=== PATIENT | male | born 1990 | race African-American/Black ===

== ENCOUNTER 2018-07-15 10:13 | Inpatient (IN) | payer MEDICAID ==
[~2018-07-15] VITALS: Ht 188 cm; Wt 122.0 kg
[2018-07-15] VITALS (19 sets, daily range): BP systolic 147–165; BP diastolic 86–109; PULSE 79–103; RESP 9–16; Ht 188 cm; Wt 122.0 kg
[2018-07-15] MEDS ORDERED: SOD CHLORIDE 0.9% 1,000 ML IV STA (10:59)
[2018-07-15] MEDS ORDERED: HYDROCHLOROTHIAZIDE 25 MG TAB PO ONE (11:00)
--- NOTE | 2018-07-15 11:21 | ERD ---
ER Documentation Chief Complaint Chief Complaint GENERALIZED WEAKNESS POOR APPETITE VOMTING. HPI This is a 26-year-old previously healthy man with multiple complaints occurring over the last few weeks including generalized weakness, palpitations, lethargy, paresthesias, muscle spasms, blurry vision, and daily intermittent vomiting. He states over the last few weeks he is lost just about 60 pounds. He denies loss of consciousness, no diarrhea, no recent travel, no recent medication or drug use. ROS All systems reviewed and are negative except as per history of present illness. Medications Home Meds No Active Prescriptions or Reported Meds Allergies Allergies: Coded Allergies: No Known Allergy (Unverified , 07/15/18) FmHx Family History: No diabetes Physical Exam Vitals Vital Signs Date Temp Pulse Resp B/P (MAP) Pulse Ox O2 O2 Flow FiO2 Time Delivery Rate 07/15/18 98 144/83 13:10 (103) 07/15/18 Nasal 11:11 Cannula 07/15/18 98.8 116 17 185/115 100 10:17 (138) Physical Exam GENERAL: Well-developed, appears dehydrated, anemic, afebrile HEENT: Dry mucous membranes, pale conjunctiva, no cervical spine tenderness or step-off deformities, no goiter, no jaundice or icterus, extraocular movements intact without pain. NEURO: Alert and oriented 3, cranial nerves II through XII intact bilaterally, positive diffuse muscular spasms over the extremities, pupils equal round reactive to light, no focal deficits or facial asymmetry, I could not elicit [place] sign CARDIAC: Regular rate and rhythm, no murmurs rubs or gallops LUNGS: Clear bilaterally no wheezing crackles or stridor ABDOMEN: Soft nontender, no guarding, no rigidity, no rebound, no psoas sign no obturator sign. SKIN: Warm and dry to touch, no abrasions, contusions, or hematomas, no lacerations, no ecchymosis, no target lesions, and without ulcers EXTREMITIES: No clubbing cyanosis, nonpitting edema in the lower extremities bilaterally, calves are bilaterally symmetrical, no Homans sign, no popliteal cord sign. Distal pulses equal and bilateral PSYCH: Normal affect without agitation or irritability Result Diagram: 07/15/18 1059 07/15/18 1059 Results 24 hrs Laboratory Tests Test 07/15/18 10:59 07/15/18 11:05 White Blood Count 7.2 10^3/ul Red Blood Count 2.47 10^6/ul Hemoglobin 6.6 g/dl Hematocrit 19.4 % Mean Corpuscular Volume 78.5 fl Mean Corpuscular Hemoglobin 26.7 pg Mean Corpuscular Hemoglobin Concent 34.0 g/dl Red Cell Distribution Width 13.2 % Platelet Count 243 10^3/UL Mean Platelet Volume 9.5 fl Immature Granulocytes % 0.300 % Neutrophils % 68.0 % Segmented Neutrophils % (Manual) 65 % Lymphocytes % 21.5 % Lymphocytes % (Manual) 29 % Monocytes % 7.2 % Monocytes % (Manual) 2 % Eosinophils % 2.4 % Eosinophils % (Manual) 4 % Basophils % 0.6 % Nucleated Red Blood Cells % 0.0 /100WBC Immature Granulocytes # 0.020 10^3/ul Neutrophils # 4.9 10^3/ul Lymphocytes (Manual) 2.0 10^3/ul Lymphocytes # 1.6 10^3/ul Monocytes # 0.5 10^3/ul Monocytes # (Manual) 0.1 10^3/ul Eosinophils # 0.2 10^3/ul Basophils # 0.0 10^3/ul Nucleated Red Blood Cells # 0.0 10^3/ul Pathologist Review (Hematology) YES Platelet Estimate NORMAL Polychromasia 3+ Hypochromasia 3+ Anisocytosis 2+ Microcytosis 2+ Macrocytosis 1+ Sodium Level 143 mmol/L Potassium Level 4.3 mmol/L Chloride Level 96 mmol/L Carbon Dioxide Level 15 mmol/L Anion Gap 32 Blood Urea Nitrogen 162 mg/dl Creatinine 44.63 mg/dl Est Glomerular Filtrat Rate mL/min 1 mL/min Glucose Level 110 mg/dl Calcium Level 5.3 mg/dl Total Bilirubin 0.0 mg/dl Direct Bilirubin 0.00 mg/dl Indirect Bilirubin 0.0 mg/dl Aspartate Amino Transf (AST/SGOT) 16 IU/L Alanine Aminotransferase (ALT/SGPT) 11 IU/L Alkaline Phosphatase 80 IU/L Troponin I 0.198 ng/ml Total Protein 8.5 g/dl Albumin 4.5 g/dl Globulin 4.00 g/dl Albumin/Globulin Ratio 1.12 Lipase 1901 U/L Thyroid Stimulating Hormone (TSH) 2.340 MIU/L Free Thyroxine 1.79 ng/dl Free Triiodothyronine (T3) pg/mL 2.48 pg/ml Bedside Glucose 114 mg/dL Current Medications Medications Dose Sig/Enedina Start Time Status Last (Trade) Ordered Route PRN Stop Time Admin Dose Reason Admin Sodium 1,000 ml @ Q1H STAT 07/15/18 DC 07/15/18 Chloride 1,000 mls/hr IV 10:59 07/15/18 11:13 11:58 25 mg ONCE ONCE 07/15/18 DC 07/15/18 Hydrochloroth PO 11:00 07/15/18 11:13 iazide 11:01 (Hydrochlorot hiazide) Magnesium 50 ml @ 25 ONCE ONCE 07/15/18 07/15/18 Sulfate mls/hr IVPB 11:30 07/15/18 12:36 13:29 Calcium 2,000 mg ONCE ONCE 07/15/18 DC 07/15/18 Chloride IV 12:30 07/15/18 12:26 (Ca Chloride 12:31 10% Syg) Sodium 1,000 ml ONCE IV 07/15/18 Chloride 13:30 07/15/18 (NS) 14:30 IV Flush 3 ml PER 07/15/18 (NS 3 ml) PROTOCOL IV 13:30 Ondansetron 4 mg Q6H PRN 07/15/18 HCl (Zofran IV 13:30 Inj) NAUSEA/VOMITI NG 650 mg Q6H PRN 07/15/18 Acetaminophen PO .PAIN 1-3 13:30 (Tylenol OR TEMP Tab) 1 tab Q6H PRN 07/15/18 Acetaminophen PO .MOD PAIN 13:30 / 4-6 Hydrocodone Bitart ([place] (5/325)) Docusate 100 mg Q12H PRN 07/15/18 Sodium PO 13:30 (Colace) .CONSTIPATION Bisacodyl 5 mg DAILY PRN 07/15/18 (Dulcolax) PO 13:30 .CONSTIPATION Bisacodyl 10 mg DAILY PRN 07/15/18 (Dulcolax [place] 13:30 Supp) .CONSTIPATION 40 mg DAILY@06 07/16/18 Pantoprazole PO 06:00 (Protonix Tab) Dextrose 1,000 ml @ Q8H IV 07/15/18 125 mls/hr 13:30 Procedures/MDM IV line was established patient was placed on surveillance system monitor rhythm strip revealed a sinus rhythm at about 90 bpm with upright P and T waves. Patient was afebrile EKG performed, read by me revealed a normal sinus rhythm at 92 bpm, normal axis, narrow QRS complex, no concerning ST elevations or depressions noted, anterolateral T wave inversions noted, prolonged QT of 556 ms I administered 1 L normal saline IV and hydrochlorothiazide 25 mg p.o. for initial hypertension. CBC revealed anemia with a hemoglobin of 6.6, electrolytes were abnormal with acidosis and a bicarb of 15, new onset renal failure with a BUN/creatinine of 162/45, calcium critically low at 5.3, troponin positive at 0.2, lipase elevated over 1900, liver function tests unremarkable I administered magnesium 2 g IV for prolonged QT and calcium 2 g IV for severe hypocalcemia. I ordered transfusion 2 units PRBC IV over 4 hours. Thyroid panel was within normal limits. CT scan of the abdomen and pelvis was performed,IMPRESSION: 1. Trace free fluid in the right and central lower pelvis at and just superior to the urinary bladder. No other free fluid. Negative for intra-abdominal abscess, free air or lymphadenopathy. 2. Mildly atrophic kidneys without calcified urinary calculi or obstructive uro lucas bilaterally. 3. No gastrointestinal disease demonstrated. 4. Fat-containing umbilical hernia without herniated bowel or strangulation. Critical Care: Time: 50 minutes, this was time separate from other billable procedures. Treatments/Evaluations: Close monitoring and treatment of unstable vital signs, cardiorespiratory, and neurologic status, while maintaining tight balance of fluid, respiratory, and cardiac interventions. I consulted urology to place a Shine catheter to monitor urine output as we could not place one in the ED. Patient will be admitted to intensive care unit and will also require further consultation with nephrology Departure Diagnosis: Primary Impression: Vomiting Vomiting type: unspecified Vomiting Intractability: intractable Nausea presence: with nausea Qualified Codes: R11.2 - Nausea with vomiting, unspecified Additional Impressions: Symptomatic anemia Unexplained weight loss Hypocalcemia Acute kidney injury Prolonged QT interval Condition: Critical DONNELL VALENZUELA MD Jul 15, 2018 11:21
[2018-07-15] MEDS ORDERED: MAGNESIUM SULFATE 2 GM/50 ML 50 ML IVPB ONE (11:30)
[2018-07-15] MEDS ORDERED: CA CHLORIDE 10% 10 ML SYRINGE IV ONE (12:30)
[2018-07-15] MEDS ORDERED: NACL 0.9% 3 ML SYG IV SCH (13:30)
[2018-07-15] MEDS ORDERED: hydrALAzine 20 MG INJ IV PRN (13:30)
[2018-07-15] MEDS ORDERED: NIFEdipine (XL) 60 MG TAB PO SCH (13:30)
[2018-07-15] MEDS ORDERED: ONDANSETRON 4 MG INJ IV PRN (13:30)
[2018-07-15] MEDS ORDERED: SODIUM CHLORIDE 0.9% 1L BAG IV SCH (13:30)
[2018-07-15] MEDS ORDERED: BISACODYL 10 MG SUPP PR PRN (13:30)
[2018-07-15] MEDS ORDERED: CLONIDINE 0.3 MG/24 HR PATCH TRANSDERM SCH ×2 (13:30→16:00)
[2018-07-15] MEDS ORDERED: DOCUSATE SODIUM 100 MG CAP PO PRN (13:30)
[2018-07-15] MEDS ORDERED: DEXTROSE 5% 1,000 ML IV SCH (13:30)
[2018-07-15] MEDS ORDERED: LIDOCAINE 2% JELLY 5 ML TOP STA (13:35)
--- NOTE | 2018-07-15 14:34 | CONS ---
Assessment/Plan Assessment/Plan Assessment/Plan (Daily) 1. acute kidney failure with acute uremic encephalopathy 2. severe metabolic acidosis 3. severe anemia with Hb 5.9 4. no past medical history Plan: seen in ED< BUN is very high, HCo3 low, Pt Hb 5.9- ordered to have PRBC transfusion will plan for HD intiation, Suprisingly Renal US showed Right kidney medical Renal disease( CKD) and left kidney not visualised CK total high, will give IVF Uric acid 14- will start allopurinol 100mg pO BID IR to place quiton catheter HD today and tomorrow with minimal ultrafilration , plan is to use mannitol with HD today THanks for consultation, I will continue to follow up Consultation Date/Type/Reason Admit Date/Time 07/15/18 Date of Consultation: Jul 15, 2018 Type of Consult NEPHROLOGY Reason for Consultation acute kidney injury, possible CKD , Hypocalcemia, Acute uremia with BUN 162 Requesting Provider: FATIMAH PARKS MD Date/Time of Note DATE: 07/15/18 TIME: 14:34 Hx of Present Illness 26-year-old previously healthy man with multiple complaints occurring over the last few weeks including generalized weakness, palpitations, lethargy, paresthesias, muscle spasms, blurry vision, and daily intermittent vomiting. He states over the last few weeks he is lost just about 60 pounds. He denies loss of consciousness, no diarrhea, no recent travel, no recent medication or drug use. his urine tox positive for opiates, In ED his labs were notable for BUN/Cr 1 62/44.63, HCO3 15- K normal, CXr negative for acute findings, pt gest admitted to ICU and Renal has been consulted for Acute kidney injury, Acidosis. No h/o kidney disease as per patient, no h/o kidney stone Constitutional: poor po, other (generalized weakness, muscle spasm ) Eyes: no complaints ENT: no complaints Respiratory: shortness of breath Cardiovascular: no complaints Gastrointestinal: no complaints Genitourinary: no complaints Musculoskeletal: no complaints Skin: no complaints Neurologic: no complaints Endocrine: no complaints Lymphatic: no complaints Psychological: no complaints Immunologic: no complaints Past Medical History Medical History: no pertinent history Home Meds No Active Prescriptions or Reported Meds Medications Current Medications IV Flush (NS 3 ml) 3 ml PER PROTOCOL IV ; Start 07/15/18 at 13:30 Ondansetron HCl (Zofran Inj) 4 mg Q6H PRN IV NAUSEA/VOMITING; Start 07/15/18 at 13:30 Acetaminophen (Tylenol Tab) 650 mg Q6H PRN PO .PAIN 1-3 OR TEMP; Start 07/15/18 at 13:30 Acetaminophen/ Hydrocodone Bitart ([place] (5/325)) 1 tab Q6H PRN PO .MOD PAIN 4- 6; Start 07/15/18 at 13:30 Docusate Sodium (Colace) 100 mg Q12H PRN PO .CONSTIPATION; Start 07/15/18 at 13:30 Bisacodyl (Dulcolax) 5 mg DAILY PRN PO .CONSTIPATION; Start 07/15/18 at 13:30 Bisacodyl (Dulcolax Supp) 10 mg DAILY PRN [place] .CONSTIPATION; Start 07/15/18 at 13:30 Pantoprazole (Protonix Tab) 40 mg DAILY@06 PO ; Start 07/16/18 at 06:00 Dextrose 1,000 ml @ 125 mls/hr Q8H IV ; Start 07/15/18 at 13:30 Hydralazine HCl (Apresoline) 10 mg Q4H PRN PO SBP more than 150 mm Hg ; Start 07/15/18 at 13:30 Clonidine HCl (Catapres-Tts 3 Patch) 1 patch DAILY TRANSDERM ; Start 07/15/18 at 13:30 Hydralazine HCl (Apresoline) 20 mg Q3H PRN IV ELEVATED SYSTOLIC BP; Start 07/15/18 at 13:30 Labetalol HCl (Normodyne) 100 mg TID PO ; Start 07/15/18 at 14:00 Hydralazine HCl (Apresoline) 75 mg TID PO ; Start 07/15/18 at 14:00 Nifedipine (Procardia Xl) 90 mg DAILY PO ; Start 07/15/18 at 13:30 Allergies: Coded Allergies: No Known Allergy (Unverified , 07/15/18) Past Surgical History Past Surgical Hx: no surgical history Family History Significant Family History: no pertinent family hx Social History Alcohol Use: none Smoking Status: Former smoker Drug Use: none Exam/Review of Systems Exam Vitals Vital Signs Date Temp Pulse Resp B/P (MAP) Pulse Ox O2 O2 Flow FiO2 Time Delivery Rate 07/15/18 98 144/83 13:10 (103) 07/15/18 Nasal 11:11 Cannula 07/15/18 98.8 17 100 10:17 Constitutional: alert Head: normocephalic Eyes: nl conjunctiva ENMT: nl external ears & nose Neck: supple, non-tender Respiratory: crackles/rales, diminished breath sounds Cardiovascular: regular rate and rhythm, nl pulses Gastrointestinal: soft, non-tender Musculoskeletal: muscle weakness, swelling, other (muscle spasm) Extremities: normal pulses Neurological: PUNCH OPERATOR II-XII intact, nl mental status, nl speech, nl strength Skin: nl turgor Lymph: nl lymph nodes Results Result Diagram: 07/15/18 1324 07/15/18 1059 Results 24hrs Laboratory Tests Test 07/15/18 10:59 07/15/18 11:05 07/15/18 13:23 07/15/18 13:24 White Blood Count 7.2 Red Blood Count 2.47 L Hemoglobin 6.6 *L 5.9 *L Hematocrit 19.4 L 17.5 L Mean Corpuscular Volume 78.5 L Mean Corpuscular 26.7 L Hemoglobin Mean Corpuscular 34.0 Hemoglobin Concent Red Cell Distribution 13.2 Width Platelet Count 243 Mean Platelet Volume 9.5 Immature Granulocytes % 0.300 Neutrophils % 68.0 Segmented Neutrophils 65 % (Manual) Lymphocytes % 21.5 Lymphocytes % (Manual) 29 Monocytes % 7.2 Monocytes % (Manual) 2 Eosinophils % 2.4 Eosinophils % (Manual) 4 Basophils % 0.6 Nucleated Red Blood 0.0 Cells % Immature Granulocytes # 0.020 Neutrophils # 4.9 Lymphocytes (Manual) 2.0 Lymphocytes # 1.6 Monocytes # 0.5 Monocytes # (Manual) 0.1 L Eosinophils # 0.2 Basophils # 0.0 Nucleated Red Blood 0.0 Cells # Pathologist YES Review (Hematology) Platelet Estimate NORMAL Polychromasia 3+ Hypochromasia 3+ Anisocytosis 2+ Microcytosis 2+ Macrocytosis 1+ Sodium Level 143 Potassium Level 4.3 Chloride Level 96 L Carbon Dioxide Level 15 L Anion Gap 32 H Blood Urea Nitrogen 162 H Creatinine 44.63 H Est Glomerular Filtrat 1 L Rate mL/min Glucose Level 110 Calcium Level 5.3 *L Total Bilirubin 0.0 L Direct Bilirubin 0.00 Indirect Bilirubin 0.0 Aspartate Amino 16 Transf (AST/SGOT) Alanine 11 L Aminotransferase (ALT/SG PT) Alkaline Phosphatase 80 Troponin I 0.198 *H Total Protein 8.5 H Albumin 4.5 Globulin 4.00 H Albumin/Globulin Ratio 1.12 Lipase 1901 H Thyroid Stimulating 2.340 Hormone (TSH) Free Thyroxine 1.79 Free Triiodothyronine 2.48 L (T3) pg/mL Bedside Glucose 114 Prothrombin Time 15.3 H Prothrombin Time Ratio 1.2 INR International 1.20 Normalized Ratio Lactate Dehydrogenase 988 H Creatine Kinase 1256 H Urine Color STRAW Urine Clarity CLEAR Urine pH 5.0 Urine Specific [place] 1.013 Urine Ketones NEGATIVE Urine Nitrite NEGATIVE Urine Bilirubin NEGATIVE Urine Urobilinogen NEGATIVE Urine Leukocyte Esterase NEGATIVE Urine Microscopic RBC 2 Urine Microscopic WBC 7 H Urine Amorphous Crystals FEW A Urine Bacteria FEW A Urine Eosinophils % 0.0 Urine Hemoglobin 1+ H Urine Random Creatinine 155.81 Urine Random Sodium 49 Urine Glucose NEGATIVE Urine Total Protein 3+ H Urine Opiates Screen Positive Urine Barbiturates Negative Urine Amphetamines Negative Screen Urine Benzodiazepines Negative Screen Urine Cocaine Screen Negative Urine Cannabinoids Negative Test 07/15/18 13:27 Uric Acid 14.1 H Medications Medication Current Medications IV Flush (NS 3 ml) 3 ml PER PROTOCOL IV ; Start 07/15/18 at 13:30 Ondansetron HCl (Zofran Inj) 4 mg Q6H PRN IV NAUSEA/VOMITING; Start 07/15/18 at 13:30 Acetaminophen (Tylenol Tab) 650 mg Q6H PRN PO .PAIN 1-3 OR TEMP; Start 07/15/18 at 13:30 Acetaminophen/ Hydrocodone Bitart ([place] (5/325)) 1 tab Q6H PRN PO .MOD PAIN 4- 6; Start 07/15/18 at 13:30 Docusate Sodium (Colace) 100 mg Q12H PRN PO .CONSTIPATION; Start 07/15/18 at 13:30 Bisacodyl (Dulcolax) 5 mg DAILY PRN PO .CONSTIPATION; Start 07/15/18 at 13:30 Bisacodyl (Dulcolax Supp) 10 mg DAILY PRN [place] .CONSTIPATION; Start 07/15/18 at 13:30 Pantoprazole (Protonix Tab) 40 mg DAILY@06 PO ; Start 07/16/18 at 06:00 Dextrose 1,000 ml @ 125 mls/hr Q8H IV ; Start 07/15/18 at 13:30 Hydralazine HCl (Apresoline) 10 mg Q4H PRN PO SBP more than 150 mm Hg ; Start 07/15/18 at 13:30 Clonidine HCl (Catapres-Tts 3 Patch) 1 patch DAILY TRANSDERM ; Start 07/15/18 at 13:30 Hydralazine HCl (Apresoline) 20 mg Q3H PRN IV ELEVATED SYSTOLIC BP; Start 07/15/18 at 13:30 Labetalol HCl (Normodyne) 100 mg TID PO ; Start 07/15/18 at 14:00 Hydralazine HCl (Apresoline) 75 mg TID PO ; Start 07/15/18 at 14:00 Nifedipine (Procardia Xl) 90 mg DAILY PO ; Start 07/15/18 at 13:30 ROSIE ULLOA MD Jul 15, 2018 14:34
--- NOTE | 2018-07-15 14:49 | CONS ---
Assessment/Plan Assessment/Plan Hospital Course (Demo Recall) 26-year-old previously healthy man with multiple presented to the emergency room with complaints of generalized weakness, palpitations, lethargy, paresthesias, muscle spasms, blurry vision, and daily intermittent vomiting. He states he has been sick over the last few weeks and he lost just about 60 pounds. He denies loss of consciousness, no diarrhea, no recent travel, no recent medication or drug use. As he presented to the emergency room he was found to have renal failure and the nursing staff attempted to insert the catheter for him unsuccessfully. Therefore a urological consultation was requested. Patient denies any prior history of catheterization. He denies any history of sexually transmitted disease. He had no prior surgeries. He denies any history of rheumatic fever, scarlet fever. His father does have prostate cancer and was treated. Prior to his present illness he has been voiding well with a good stream and no dysuria and no hematuria On the exam his bladder is nondistended. I did however insert a 14 [place] coud catheter for him and obtained about 60 mL of clear urine. I prep the genital area then gave him 15 mL of 2% lidocaine gel and waited for it for 6 minutes to work. Then I inserted the catheter and that went in without any difficulty. The catheter was connected to a drainage bag. Further care will be by the medical team. Consultation Date/Type/Reason Admit Date/Time July 15, 2018 Date of Consultation: Jul 15, 2018 Type of Consult Urology Reason for Consultation Acute renal failure and unsuccessful attempts to insert a Shine catheter by the ER staff Requesting Provider: FATIMAH PARKS MD Date/Time of Note DATE: 07/15/18 TIME: 14:34 Hx of Present Illness 26-year-old previously healthy man with multiple presented to the emergency room with complaints of generalized weakness, palpitations, lethargy, paresthesias, muscle spasms, blurry vision, and daily intermittent vomiting. He states he has been sick over the last few weeks and he lost just about 60 pounds . He denies loss of consciousness, no diarrhea, no recent travel, no recent medication or drug use. As he presented to the emergency room he was found to have renal failure and the nursing staff attempted to insert the catheter for him unsuccessfully. Therefore a urological consultation was requested. Patient denies any prior history of catheterization. He denies any history of sexually transmitted disease. He had no prior surgeries. He denies any history of rheumatic fever, scarlet fever. His father does have prostate cancer and was treated. Prior to his present illness he has been voiding well with a good stream and no dysuria and no hematuria Constitutional: other (Generalized weakness and numbness in his lower extremities.) Eyes: no complaints ENT: no complaints Respiratory: No wheezing Cardiovascular: No chest pain Gastrointestinal: no complaints Genitourinary: other (He has been voiding very small amount); No dysuria, No flank pain Musculoskeletal: no complaints Skin: no complaints Neurologic: headache Endocrine: no complaints Psychological: no complaints Immunologic: no complaints Past Medical History Medical History: no pertinent history Home Meds No Active Prescriptions or Reported Meds Medications Current Medications IV Flush (NS 3 ml) 3 ml PER PROTOCOL IV ; Start 07/15/18 at 13:30 Ondansetron HCl (Zofran Inj) 4 mg Q6H PRN IV NAUSEA/VOMITING; Start 07/15/18 at 13:30 Acetaminophen (Tylenol Tab) 650 mg Q6H PRN PO .PAIN 1-3 OR TEMP; Start 07/15/18 at 13:30 Acetaminophen/ Hydrocodone Bitart ([place] (5/325)) 1 tab Q6H PRN PO .MOD PAIN 4- 6; Start 07/15/18 at 13:30 Docusate Sodium (Colace) 100 mg Q12H PRN PO .CONSTIPATION; Start 07/15/18 at 13:30 Bisacodyl (Dulcolax) 5 mg DAILY PRN PO .CONSTIPATION; Start 07/15/18 at 13:30 Bisacodyl (Dulcolax Supp) 10 mg DAILY PRN [place] .CONSTIPATION; Start 07/15/18 at 13:30 Pantoprazole (Protonix Tab) 40 mg DAILY@06 PO ; Start 07/16/18 at 06:00 Dextrose 1,000 ml @ 125 mls/hr Q8H IV ; Start 07/15/18 at 13:30 Hydralazine HCl (Apresoline) 10 mg Q4H PRN PO SBP more than 150 mm Hg ; Start 07/15/18 at 13:30 Clonidine HCl (Catapres-Tts 3 Patch) 1 patch DAILY TRANSDERM ; Start 07/15/18 at 13:30 Hydralazine HCl (Apresoline) 20 mg Q3H PRN IV ELEVATED SYSTOLIC BP; Start 07/15/18 at 13:30 Labetalol HCl (Normodyne) 100 mg TID PO ; Start 07/15/18 at 14:00 Hydralazine HCl (Apresoline) 75 mg TID PO ; Start 07/15/18 at 14:00 Nifedipine (Procardia Xl) 90 mg DAILY PO ; Start 07/15/18 at 13:30 Allergies: Coded Allergies: No Known Allergy (Unverified , 07/15/18) Past Surgical History Past Surgical Hx: no surgical history Family History Significant Family History: other (Father has history of prostate cancer) Social History Alcohol Use: rarely Smoking Status: Former smoker Drug Use: none Other Social History Works as data security administrator Exam/Review of Systems Exam Vitals Vital Signs Date Temp Pulse Resp B/P (MAP) Pulse Ox O2 O2 Flow FiO2 Time Delivery Rate 07/15/18 98 144/83 13:10 (103) 07/15/18 Nasal 11:11 Cannula 07/15/18 98.8 17 100 10:17 Constitutional: alert, oriented Psych: no complaints Head: normocephalic (1) Eyes: nl conjunctiva ENMT: nl external ears & nose Neck: supple, non-tender Respiratory: normal air movement; No wheezing Cardiovascular: No jugular venous distention (JVD) Genitourinary - Male: nl penis, nl scrotum; No CVA tenderness Musculoskeletal: nl extremities to inspection, muscle weakness Extremities: clubbing, edema; No calf tenderness Neurological: nl mental status Skin: nl turgor Lymph: enlarged Results Result Diagram: 07/15/18 1324 07/15/18 1323 Results 24hrs Laboratory Tests Test 07/15/18 10:59 07/15/18 11:05 07/15/18 13:23 07/15/18 13:24 White Blood Count 7.2 Red Blood Count 2.47 L Hemoglobin 6.6 *L 5.9 *L Hematocrit 19.4 L 17.5 L Mean Corpuscular Volume 78.5 L Mean Corpuscular 26.7 L Hemoglobin Mean Corpuscular 34.0 Hemoglobin Concent Red Cell Distribution 13.2 Width Platelet Count 243 Mean Platelet Volume 9.5 Immature Granulocytes % 0.300 Neutrophils % 68.0 Segmented Neutrophils 65 % (Manual) Lymphocytes % 21.5 Lymphocytes % (Manual) 29 Monocytes % 7.2 Monocytes % (Manual) 2 Eosinophils % 2.4 Eosinophils % (Manual) 4 Basophils % 0.6 Nucleated Red Blood 0.0 Cells % Immature Granulocytes # 0.020 Neutrophils # 4.9 Lymphocytes (Manual) 2.0 Lymphocytes # 1.6 Monocytes # 0.5 Monocytes # (Manual) 0.1 L Eosinophils # 0.2 Basophils # 0.0 Nucleated Red Blood 0.0 Cells # Pathologist YES Review (Hematology) Platelet Estimate NORMAL Polychromasia 3+ Hypochromasia 3+ Anisocytosis 2+ Microcytosis 2+ Macrocytosis 1+ Sodium Level 143 Potassium Level 4.3 Chloride Level 96 L Carbon Dioxide Level 15 L Anion Gap 32 H Blood Urea Nitrogen 162 H Creatinine 44.63 H 43.25 H Est Glomerular Filtrat 1 L Rate mL/min Glucose Level 110 Calcium Level 5.3 *L Total Bilirubin 0.0 L Direct Bilirubin 0.00 Indirect Bilirubin 0.0 Aspartate Amino 16 Transf (AST/SGOT) Alanine 11 L Aminotransferase (ALT/SG PT) Alkaline Phosphatase 80 Troponin I 0.198 *H Total Protein 8.5 H Albumin 4.5 Globulin 4.00 H Albumin/Globulin Ratio 1.12 Lipase 1901 H Thyroid Stimulating 2.340 Hormone (TSH) Free Thyroxine 1.79 Free Triiodothyronine 2.48 L (T3) pg/mL Bedside Glucose 114 Prothrombin Time 15.3 H Prothrombin Time Ratio 1.2 INR International 1.20 Normalized Ratio Lactate Dehydrogenase 988 H Creatine Kinase 1256 H Urine Color STRAW Urine Clarity CLEAR Urine pH 5.0 Urine Specific [place] 1.013 Urine Ketones NEGATIVE Urine Nitrite NEGATIVE Urine Bilirubin NEGATIVE Urine Urobilinogen NEGATIVE Urine Leukocyte Esterase NEGATIVE Urine Microscopic RBC 2 Urine Microscopic WBC 7 H Urine Amorphous Crystals FEW A Urine Bacteria FEW A Urine Eosinophils % 0.0 Urine Hemoglobin 1+ H Urine Random Creatinine 155.81 Urine Random Sodium 49 Urine Glucose NEGATIVE Urine Total Protein 3+ H Urine Opiates Screen Positive Urine Barbiturates Negative Urine Amphetamines Negative Screen Urine Benzodiazepines Negative Screen Urine Cocaine Screen Negative Urine Cannabinoids Negative Test 07/15/18 13:27 Uric Acid 14.[address] scan of the abdomen and pelvis without contrast: 1. Trace free fluid in the right and central lower pelvis at and just superior to the urinary bladder. No other free fluid. Negative for intra-abdominal abscess, free air or lymphadenopathy. 2. Mildly atrophic kidneys without calcified urinary calculi or obstructive uropathy bilaterally. 3. No gastrointestinal disease demonstrated. 4. Fat-containing umbilical hernia without herniated bowel or strangulation Renal ultrasound :Echogenic right kidney, consistent with medical renal disease. No evidence of hydronephrosis. Left kidney not visualized. Medications Medication Current Medications IV Flush (NS 3 ml) 3 ml PER PROTOCOL IV ; Start 07/15/18 at 13:30 Ondansetron HCl (Zofran Inj) 4 mg Q6H PRN IV NAUSEA/VOMITING; Start 07/15/18 at 13:30 Acetaminophen (Tylenol Tab) 650 mg Q6H PRN PO .PAIN 1-3 OR TEMP; Start 07/15/18 at 13:30 Acetaminophen/ Hydrocodone Bitart ([place] (5/325)) 1 tab Q6H PRN PO .MOD PAIN 4- 6; Start 07/15/18 at 13:30 Docusate Sodium (Colace) 100 mg Q12H PRN PO .CONSTIPATION; Start 07/15/18 at 13:30 Bisacodyl (Dulcolax) 5 mg DAILY PRN PO .CONSTIPATION; Start 07/15/18 at 13:30 Bisacodyl (Dulcolax Supp) 10 mg DAILY PRN [place] .CONSTIPATION; Start 07/15/18 at 13:30 Pantoprazole (Protonix Tab) 40 mg DAILY@06 PO ; Start 07/16/18 at 06:00 Dextrose 1,000 ml @ 125 mls/hr Q8H IV ; Start 07/15/18 at 13:30 Hydralazine HCl (Apresoline) 10 mg Q4H PRN PO SBP more than 150 mm Hg ; Start 07/15/18 at 13:30 Clonidine HCl (Catapres-Tts 3 Patch) 1 patch DAILY TRANSDERM ; Start 07/15/18 at 13:30 Hydralazine HCl (Apresoline) 20 mg Q3H PRN IV ELEVATED SYSTOLIC BP; Start 07/15/18 at 13:30 Labetalol HCl (Normodyne) 100 mg TID PO ; Start 07/15/18 at 14:00 Hydralazine HCl (Apresoline) 75 mg TID PO ; Start 07/15/18 at 14:00 Nifedipine (Procardia Xl) 90 mg DAILY PO ; Start 07/15/18 at 13:30 STAR LINK MD Jul 15, 2018 14:46
[2018-07-15] MEDS ORDERED: ALBUMIN HUMAN 25% 100 ML IV PRN (15:00)
[2018-07-15] MEDS ORDERED: SODIUM CHLORIDE 0.9% 1L BAG IV PRN (15:00)
[2018-07-15] MEDS ORDERED: MANNITOL 25% 50 ML IV PRN (16:00)
[2018-07-15] MEDS: LABETALOL 100 MG TAB PO SCH ×2 (16:07→23:55)
[2018-07-15] MEDS ORDERED: CALCIUM GLUCONATE 10% 2 GM in DEXTROSE 5% 100 ML IVPB ONE (16:30)
[2018-07-15] MEDS: NIFEdipine (XL) 90 MG TAB PO SCH (17:06)
[2018-07-15] MEDS: SODIUM BICARBONATE (IV ADD) 150 MEQ in DEXTROSE 5% 1,000 ML IV SCH (17:08)
--- NOTE | 2018-07-15 18:30 | HP ---
Date/Time of Note Date/Time of Note DATE: 07/15/18 TIME: 18:21 Assessment/Plan VTE Prophylaxis SCD contraindicated: low risk/ambulating Pharmacological prophylaxis: NA/contraindicated Pharm contraindication: surgical contra Lines/Catheters IV Catheter Type (from Nrsg): Saline Lock Urinary Cath still in place: Yes Reason Cath still needed: urinary retention Assessment/Plan Hospital Course CComplaint vomiting History of present illness 28-year-old gentleman who presents with home for feeling weak. Over the last month he has had nausea vomiting. No known aggravating or relieving factors. In the ER it was noted that he was having elevated blood pressure, renal failure and anemia. Patient has not noticed any hematuria dysuria burning micturition or anuria. No diarrhea. Possibly constipated but no GI bleed. No ill contacts/ foods. No dyspnea cough or fever. No rash. No family history of renal issues. ER: No EKG changes of hyperkalemia. 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 No alcohol or drugs Family history No family history of early coronary disease cancer stroke. An aunt may have had stomach cancer. Review of systems Neuro: No loss of speech vision or positive headache Cardia vascular: No chest pain positive dyspnea no edema lungs Lungs no cough no wheezing no fever Abdomen positive nausea vomiting no diarrhea no abdominal pain Genitourinary: No dysuria hematuria burning micturition or fever Musculoskeletal: No gait dysfunction no rash no itching no edema positive fatigue Constitutional: No fever no chills Reiger's Psychiatry: The patient has a mild amount of anxiety no agitation depression Hematologic; no hematochezia melena hematuria Endocrine: No previous diabetes dyslipidemia or thyroid dysfunction Physical exam No pallor adenopathy JVD Regular Clear Benign overweight No edema positive tattoos but no rash Assessment and plan 1. Acute renal failure, ukn etio. Does not appear to be very acute. supplement use? Consider mm/rhabdo/hep C, mod stable consult nephrology. -States he quit drinking Monster and tobacco 6 months ago. He was occasionally having a Red Bull up until a while ago. Denies substance abuse. States his tattoos were w clean needles in the past. Agrees to IV access and dialysis. 2. Anemia likely of chronic disease. No active bleed. Check LDH. No history of transfusion ulcers etc. stable observe 3. Accelerated hypertension due to renal failure stable start therapy 4. Metabolic syndrome? 5. Metabolic acidosis due to renal failure, start bicarb patient will need dialysis Result Diagram: 07/15/18 1324 07/15/18 1625 Results 24hrs Laboratory Tests Test 07/15/18 10:59 07/15/18 11:05 07/15/18 13:23 07/15/18 13:24 White Blood Count 7.2 Red Blood Count 2.47 L Hemoglobin 6.6 *L 5.9 *L Hematocrit 19.4 L 17.5 L Mean Corpuscular 78.5 L Volume Mean Corpuscular 26.7 L Hemoglobin Mean Corpuscular 34.0 Hemoglobin Concent Red Cell 13.2 Distribution Width Platelet Count 243 Mean Platelet 9.5 Volume Immature 0.300 Granulocytes % Neutrophils % 68.0 Segmented 65 Neutrophils % (Manual) Lymphocytes % 21.5 Lymphocytes % 29 (Manual) Monocytes % 7.2 Monocytes % 2 (Manual) Eosinophils % 2.4 Eosinophils % 4 (Manual) Basophils % 0.6 Nucleated Red 0.0 Blood Cells % Immature 0.020 Granulocytes # Neutrophils # 4.9 Lymphocytes 2.0 (Manual) Lymphocytes # 1.6 Monocytes # 0.5 Monocytes # 0.1 L (Manual) Eosinophils # 0.2 Basophils # 0.0 Nucleated Red 0.0 Blood Cells # Pathologist YES Review (Hematology ) Platelet Estimate NORMAL Polychromasia 3+ Hypochromasia 3+ Anisocytosis 2+ Microcytosis 2+ Macrocytosis 1+ Sodium Level 143 Potassium Level 4.3 Chloride Level 96 L Carbon Dioxide 15 L Level Anion Gap 32 H Blood Urea 162 H Nitrogen Creatinine 44.63 H 43.25 H Est Glomerular 1 L Filtrat Rate mL/min Glucose Level 110 Calcium Level 5.3 *L Total Bilirubin 0.0 L Direct Bilirubin 0.00 Indirect Bilirubin 0.0 Aspartate Amino 16 Transf (AST/SGOT) Alanine 11 L Aminotransferase ( ALT/SGPT) Alkaline 80 Phosphatase Troponin I 0.198 *H Total Protein 8.5 H Albumin 4.5 Globulin 4.00 H Albumin/Globulin 1.12 Ratio Lipase 1901 H Thyroid 2.340 Stimulating Hormone (TSH) Free Thyroxine 1.79 Free 2.48 L Triiodothyronine (T3) pg/mL Bedside Glucose 114 Prothrombin Time 15.3 H Prothrombin Time 1.2 Ratio INR International 1.20 Normalized Ratio Lactate 988 H Dehydrogenase Creatine Kinase 1256 H Urine Color STRAW Urine Clarity CLEAR Urine pH 5.0 Urine Specific 1.013 [place] Urine Ketones NEGATIVE Urine Nitrite NEGATIVE Urine Bilirubin NEGATIVE Urine Urobilinogen NEGATIVE Urine Leukocyte NEGATIVE Esterase Urine Microscopic 2 RBC Urine Microscopic 7 H WBC Urine Amorphous FEW A Crystals Urine Bacteria FEW A Urine Eosinophils 0.0 % Urine Hemoglobin 1+ H Urine Random 155.81 Creatinine Urine Random 49 Sodium Urine Glucose NEGATIVE Urine Total 3+ H Protein Urine Opiates Positive Screen Urine Barbiturates Negative Urine Amphetamines Negative Screen Urine Negative Benzodiazepines Screen Urine Cocaine Negative Screen Urine Cannabinoids Negative Test 07/15/18 13:27 07/15/18 16:00 07/15/18 16:25 Uric Acid 14.1 H Blood Gas Specimen Blood arterial Source Arterial Blood 07/15/2018 2:42:29 Date Drawn PM Arterial Blood pH 7.492 H (Temp corrected) Arterial Blood 15.9 L pCO2 (Temp correct) Arterial Blood pO2 144.2 H (Temp corrected) Arterial Blood 11.9 L HCO3 Arterial Blood -10.3 L Base Excess Arterial Blood 98.3 H Oxygen Saturation [place] Test ACCEPTAB Arterial Blood Gas Left Radial Puncture Site Arterial 0.3 Blood Carboxyhemog lobin Arterial Blood 0.7 Methemoglobin Blood Gas A-a O2 29.5 H Differential Oxyhemoglobin 97.3 Percent Blood Gas 37.0 Temperature Blood Gas Modality NASAL CANNULA FiO2 27.0 Blood Gas Notified MDA Whom Blood Gas Notified 07/15/2018 2:48:01 Time PM Sodium Level 142 Potassium Level 3.9 Chloride Level 99 Carbon Dioxide 14 L Level Anion Gap 29 H Blood Urea 165 H Nitrogen Creatinine Pending Est Glomerular Pending Filtrat Rate mL/min Glucose Level 79 Calcium Level 6.6 L HPI/ROS Admit Date/Time Admit Date/Time July 15, 2018 PMH/Family/Social Past Medical History Medical History: no pertinent history Medications Current Medications IV Flush (NS 3 ml) 3 ml PER PROTOCOL IV ; Start 07/15/18 at 13:30 Ondansetron HCl (Zofran Inj) 4 mg Q6H PRN IV NAUSEA/VOMITING; Start 07/15/18 at 13:30 Acetaminophen (Tylenol Tab) 650 mg Q6H PRN PO .PAIN 1-3 OR TEMP; Start 07/15/18 at 13:30 Acetaminophen/ Hydrocodone Bitart ([place] (5/325)) 1 tab Q6H PRN PO .MOD PAIN 4- 6; Start 07/15/18 at 13:30 Docusate Sodium (Colace) 100 mg Q12H PRN PO .CONSTIPATION; Start 07/15/18 at 13:30 Bisacodyl (Dulcolax) 5 mg DAILY PRN PO .CONSTIPATION; Start 07/15/18 at 13:30 Bisacodyl (Dulcolax Supp) 10 mg DAILY PRN [place] .CONSTIPATION; Start 07/15/18 at 13:30 Pantoprazole (Protonix Tab) 40 mg DAILY@06 PO ; Start 07/16/18 at 06:00 Hydralazine HCl (Apresoline) 10 mg Q4H PRN PO SBP more than 150 mm Hg ; Start 07/15/18 at 13:30 Hydralazine HCl (Apresoline) 20 mg Q3H PRN IV ELEVATED SYSTOLIC BP; Start at 13:30 Labetalol HCl (Normodyne) 100 mg TID PO Last administered on 07/15/18at 16:07; Admin Dose 100 MG; Start 07/15/18 at 14:00 Hydralazine HCl (Apresoline) 75 mg TID PO ; Start 07/15/18 at 14:00 Nifedipine (Procardia Xl) 90 mg DAILY PO Last administered on 07/15/18at 17:06; Admin Dose 90 MG; Start 07/15/18 at 13:30 Heparin Sodium (Porcine) (Heparin (1000 Units/ml)) 4,000 unit AFTER DIALYSIS CATHETER ; Start 07/15/18 at 15:00 Mannitol 50 ml @ 50 mls/5 min WITH DIALYSIS PRN IV DISEQUILIBRIUM SYNDROME PPX; Start 07/15/18 at 16:00 Albumin Human 100 ml @ 100 mls/hr WITH DIALYSIS PRN IV SBP <90 DURING DIALYSIS; Start 07/15/18 at 15:00 Sodium Chloride (NS) -To prime the dialy... DIRECTED FOR HD PRN IV HD; Start 07/15/18 at 15:00 Calcium Gluconate 2 gm/Dextrose 120 ml @ 60 mls/hr ONCE ONCE IVPB ; Start 07/15/18 at 16:30; Stop 07/15/18 at 18:29 Clonidine HCl (Catapres-Tts 3 Patch) 1 patch Sa@1000 TRANSDERM Last administered on 07/15/18at 17:07; Admin Dose 1 PATCH; Start 07/15/18 at 16:00 Sodium Bicarbonate 150 meq/Dextrose 1,000 ml @ 125 mls/hr Q8H IV Last administered on 07/15/18at 17:08; Admin Dose 125 MLS/HR; Start 07/15/18 at 16:30 Coded Allergies: No Known Allergy (Unverified , 07/15/18) Past Surgical History Past Surgical Hx: no surgical history Family History Significant Family History: other (Father has history of prostate cancer) Social History Alcohol Use: rarely Smoking Status: Former smoker Drug Use: none Exam/Review of Systems Vital Signs Vitals Vital Signs Date Temp Pulse Resp B/P (MAP) Pulse Ox O2 O2 Flow FiO2 Time Delivery Rate 07/15/18 84 9 165/103 100 16:00 (123) 07/15/18 Nasal 3.0 16:00 Cannula 07/15/18 98.1 15:27 FATIMAH PARKS MD Jul 15, 2018 18:30
[2018-07-15] MEDS ORDERED: LIDOCAINE 1% (MPF) 5 ML VIAL ONE (18:37)
--- NOTE | 2018-07-15 19:50 | HPN ---
Date/Time of Note Date/Time of Note DATE: 07/15/18 TIME: 19:50 Interval H&P Admission Note Pt. seen H&P reviewed: No system changes ANNIA THRASHER MD Jul 15, 2018 19:50
[2018-07-15] MEDS: HEPARIN 1000 UNITS/ML 10 ML INJ CATHETER SCH (22:42)
[2018-07-16] VITALS (35 sets, daily range): BP systolic 98–157; BP diastolic 65–99; PULSE 59–100; RESP 10–18
[2018-07-16] MEDS: SODIUM BICARBONATE (IV ADD) 150 MEQ in DEXTROSE 5% 1,000 ML IV SCH ×2 (00:30→08:13)
[2018-07-16] MEDS: PANTOPRAZOLE (EC) 40 MG TAB PO SCH (06:48)
[2018-07-16] MEDS: NIFEdipine (XL) 90 MG TAB PO SCH (09:00)
[2018-07-16] MEDS: LABETALOL 100 MG TAB PO SCH ×4 (09:00→23:32)
[2018-07-16] MEDS: ACETAMINOPHEN 325 MG TAB PO PRN (09:51)
[2018-07-16] MEDS: ALLOPURINOL 100 MG TAB PO SCH ×3 (09:52→23:32)
--- NOTE | 2018-07-16 10:01 | CONS ---
Assessment/Plan Assessment/Plan Assessment/Plan (Daily) 1. acute kidney failure with acute uremic encephalopathy - started on HD on 07/15/18 2. severe metabolic acidosis - Improving 3. severe anemia with Hb 5.9 s/p PRBC transfusion 4. no past medical history 9. accelerated HTN Plan: s/p R IJ [place] catheter placement on 07/15/18- had a first HD for 2 hr yesterday 500 cc drained, will plan for another HD today and Tomorrow HIV, Hepatitis panel with AM labs. Suprisingly Renal US showed Right kidney medical Renal disease( CKD) and left kidney not visualized d/c bicarbonate drip now, change diet to renal diet Uric acid 14- allopurinol 100mg PO BID Epogen 8000 units SQ TID MWF Hydralazien 50mg pO TID, IV prn will keep mcdaniel catheter in till tuesday for strict I/O- will have him See a SW to apply for MediCal will follow up Consultation Date/Type/Reason Admit Date/Time Jul 15, 2018 at 12:54 Initial Consult Date 07/15/18 Type of Consult NEPHROLOGY Requesting Provider: FATIMAH PARKS MD Date/Time of Note DATE: 07/16/18 TIME: 10:01 24 HR Interval Summary Free Text/Dictation pt started on HD yesterday, tolerated first two hr well, BP stable, kidney US showed Medical renal disease Exam/Review of Systems Exam Vitals Vital Signs Date Temp Pulse Resp B/P (MAP) Pulse Ox O2 O2 Flow FiO2 Time Delivery Rate 07/16/18 97.5 81 17 118/79 97 08:00 (92) 07/16/18 Room Air 06:00 07/15/18 3.0 22:48 Intake and Output 07/15/18 07/15/18 07/16/18 1515:00 23:00 07:00 IntakeIntake Total 605 ml 1050 ml OutputOutput Total 1340 ml 260 ml BalanceBalance -735 ml 790 ml Exam Constitutional: alert Respiratory: crackles/rales, diminished breath sounds Cardiovascular: regular rate and rhythm, nl pulses Gastrointestinal: soft, non-tender Musculoskeletal: muscle weakness, swelling, other (muscle spasm) Extremities: normal pulses Neurological: GROCERY CASHIER II-XII intact, nl mental status, nl speech, nl strength Skin: nl turgor Lymph: nl lymph nodes Results Result Diagram: 07/16/18 0515 07/16/18 0515 Results 24hrs Laboratory Tests Test 07/15/18 10:59 07/15/18 11:05 07/15/18 13:23 07/15/18 13:24 White Blood Count 7.2 Red Blood Count 2.47 L Hemoglobin 6.6 *L 5.9 *L Hematocrit 19.4 L 17.5 L Mean Corpuscular 78.5 L Volume Mean Corpuscular 26.7 L Hemoglobin Mean Corpuscular 34.0 Hemoglobin Concent Red Cell 13.2 Distribution Width Platelet Count 243 Mean Platelet 9.5 Volume Immature 0.300 Granulocytes % Neutrophils % 68.0 Segmented 65 Neutrophils % (Manual) Lymphocytes % 21.5 Lymphocytes % 29 (Manual) Monocytes % 7.2 Monocytes % 2 (Manual) Eosinophils % 2.4 Eosinophils % 4 (Manual) Basophils % 0.6 Nucleated Red 0.0 Blood Cells % Immature 0.020 Granulocytes # Neutrophils # 4.9 Lymphocytes 2.0 (Manual) Lymphocytes # 1.6 Monocytes # 0.5 Monocytes # 0.1 L (Manual) Eosinophils # 0.2 Basophils # 0.0 Nucleated Red 0.0 Blood Cells # Pathologist YES Review (Hematology ) Platelet Estimate NORMAL Polychromasia 3+ Hypochromasia 3+ Anisocytosis 2+ Microcytosis 2+ Macrocytosis 1+ Sodium Level 143 Potassium Level 4.3 Chloride Level 96 L Carbon Dioxide 15 L Level Anion Gap 32 H Blood Urea 162 H Nitrogen Creatinine 44.63 H 43.25 H Est Glomerular 1 L Filtrat Rate mL/min Glucose Level 110 Calcium Level 5.3 *L Total Bilirubin 0.0 L Direct Bilirubin 0.00 Indirect Bilirubin 0.0 Aspartate Amino 16 Transf (AST/SGOT) Alanine 11 L Aminotransferase ( ALT/SGPT) Alkaline 80 Phosphatase Troponin I 0.198 *H Total Protein 8.5 H Albumin 4.5 Globulin 4.00 H Albumin/Globulin 1.12 Ratio Lipase 1901 H Thyroid 2.340 Stimulating Hormone (TSH) Free Thyroxine 1.79 Free 2.48 L Triiodothyronine (T3) pg/mL Bedside Glucose 114 Prothrombin Time 15.3 H Prothrombin Time 1.2 Ratio INR International 1.20 Normalized Ratio Lactate 988 H Dehydrogenase Creatine Kinase 1256 H Urine Color STRAW Urine Clarity CLEAR Urine pH 5.0 Urine Specific 1.013 [place] Urine Ketones NEGATIVE Urine Nitrite NEGATIVE Urine Bilirubin NEGATIVE Urine Urobilinogen NEGATIVE Urine Leukocyte NEGATIVE Esterase Urine Microscopic 2 RBC Urine Microscopic 7 H WBC Urine Amorphous FEW A Crystals Urine Bacteria FEW A Urine Eosinophils 0.0 % Urine Hemoglobin 1+ H Urine Random 155.81 Creatinine Urine Random 49 Sodium Urine Glucose NEGATIVE Urine Total 3+ H Protein Urine Opiates Positive Screen Urine Barbiturates Negative Urine Amphetamines Negative Screen Urine Negative Benzodiazepines Screen Urine Cocaine Negative Screen Urine Cannabinoids Negative Test 07/15/18 13:27 07/15/18 14:29 07/15/18 14:32 07/15/18 16:00 Uric Acid 14.1 H Hepatitis B NEGATIVE Surface Antigen Haptoglobin Pending Total Protein 7.0 (PEP) Albumin (PEP) Pending [id number] Pending [id number] Pending Beta Globulins Pending Gamma Globulins Pending Protein Pending Electrophoresis In terpret Blood Gas Specimen Blood arterial Source Arterial Blood 07/15/2018 2:42:29 Date Drawn PM Arterial Blood pH 7.492 H (Temp corrected) Arterial Blood 15.9 L pCO2 (Temp correct) Arterial Blood pO2 144.2 H (Temp corrected) Arterial Blood 11.9 L HCO3 Arterial Blood -10.3 L Base Excess Arterial Blood 98.3 H Oxygen Saturation Ronan Test ACCEPTAB Arterial Blood Gas Left Radial Puncture Site Arterial 0.3 Blood Carboxyhemog lobin Arterial Blood 0.7 Methemoglobin Blood Gas A-a O2 29.5 H Differential Oxyhemoglobin 97.3 Percent Blood Gas 37.0 Temperature Blood Gas Modality NASAL CANNULA FiO2 27.0 Blood Gas Notified MDA Whom Blood Gas Notified 07/15/2018 2:48:01 Time PM Test 07/15/18 16:25 07/15/18 20:08 07/16/18 05:15 Sodium Level 142 140 Potassium Level 3.9 3.6 Chloride Level 99 98 Carbon Dioxide 14 L 23 Level Anion Gap 29 H 19 #H Blood Urea 165 H 119 #H Nitrogen Creatinine 43.87 H 34.47 #H Est Glomerular 1 L 2 L Filtrat Rate mL/min Glucose Level 79 145 # Calcium Level 6.6 L 7.0 L Troponin I 0.221 *H White Blood Count 6.7 Red Blood Count 2.53 L Hemoglobin 7.1 #L Hematocrit 20.5 L Mean Corpuscular 81.0 L Volume Mean Corpuscular 28.1 L Hemoglobin Mean Corpuscular 34.6 Hemoglobin Concent Red Cell 13.2 Distribution Width Platelet Count 181 # Mean Platelet 10.1 Volume Immature 0.300 Granulocytes % Neutrophils % 64.5 Lymphocytes % 24.0 Monocytes % 9.4 Eosinophils % 1.5 Basophils % 0.3 Nucleated Red 0.0 Blood Cells % Immature 0.020 Granulocytes # Neutrophils # 4.3 Lymphocytes # 1.6 Monocytes # 0.6 Eosinophils # 0.1 Basophils # 0.0 Nucleated Red 0.0 Blood Cells # Hemoglobin A1c 6.0 H Magnesium Level 2.1 Total Bilirubin 0.1 L Direct Bilirubin 0.00 Indirect Bilirubin 0.1 Aspartate Amino 19 Transf (AST/SGOT) Alanine 17 Aminotransferase ( ALT/SGPT) Alkaline 65 Phosphatase Creatine Kinase 1050 H Total Protein 7.2 # Albumin 3.8 Globulin 3.40 H Albumin/Globulin 1.11 Ratio Medications Medication Current Medications IV Flush (NS 3 ml) 3 ml PER PROTOCOL IV ; Start 07/15/18 at 13:30 Ondansetron HCl (Zofran Inj) 4 mg Q6H PRN IV NAUSEA/VOMITING; Start 07/15/18 at 13:30 Acetaminophen (Tylenol Tab) 650 mg Q6H PRN PO .PAIN 1-3 OR TEMP Last administered on 07/16/18at 09:51; Admin Dose 650 MG; Start 07/15/18 at 13:30 Acetaminophen/ Hydrocodone Bitart ([place] (5/325)) 1 tab Q6H PRN PO .MOD PAIN 4- 6; Start 07/15/18 at 13:30 Docusate Sodium (Colace) 100 mg Q12H PRN PO .CONSTIPATION; Start 07/15/18 at 13:30 Bisacodyl (Dulcolax) 5 mg DAILY PRN PO .CONSTIPATION; Start 07/15/18 at 13:30 Bisacodyl (Dulcolax Supp) 10 mg DAILY PRN [place] .CONSTIPATION; Start 07/15/18 at 13:30 Pantoprazole (Protonix Tab) 40 mg DAILY@06 PO Last administered on 07/16/18at 06:48; Admin Dose 40 MG; Start 07/16/18 at 06:00 Hydralazine HCl (Apresoline) 10 mg Q4H PRN PO SBP more than 150 mm Hg ; Start 07/15/18 at 13:30 Hydralazine HCl (Apresoline) 20 mg Q3H PRN IV ELEVATED SYSTOLIC BP; Start 07/15/18 at 13:30 Labetalol HCl (Normodyne) 100 mg TID PO Last administered on 07/15/18at 23:55; Admin Dose 100 MG; Start 07/15/18 at 14:00 Hydralazine HCl (Apresoline) 75 mg TID PO Last administered on 07/15/18 23:57; Admin Dose 75 MG; Start 07/15/18 at 14:00 Nifedipine (Procardia Xl) 90 mg DAILY PO Last administered on 07/15/18 17:06; Admin Dose 90 MG; Start 07/15/18 at 13:30 Heparin Sodium (Porcine) (Heparin (1000 Units/ml)) 4,000 unit AFTER DIALYSIS CATHETER Last administered on 07/15/18 22:42; Admin Dose 4,000 UNIT; Start 07/15/18 at 15:00 Mannitol 50 ml @ 50 mls/5 min WITH DIALYSIS PRN IV DISEQUILIBRIUM SYNDROME PPX; Start 07/15/18 at 16:00 Albumin Human 100 ml @ 100 mls/hr WITH DIALYSIS PRN IV SBP <90 DURING DIALYSIS; Start 07/15/18 at 15:00 Sodium Chloride (NS) -To prime the dialy... DIRECTED FOR HD PRN IV HD; Start 07/15/18 at 15:00 Clonidine HCl (Catapres-Tts 3 Patch) 1 patch Sa@1000 TRANSDERM Last administered on 07/15/18at 17:07; Admin Dose 1 PATCH; Start 07/15/18 at 16:00 Sodium Bicarbonate 150 meq/Dextrose 1,000 ml @ 125 mls/hr Q8H IV Last administered on 07/16/18 08:13; Admin Dose 125 MLS/HR; Start 07/15/18 at 16:30 Allopurinol (Zyloprim) 100 mg BID PO Last administered on 07/16/18 09:52; Admin Dose 100 MG; Start 07/16/18 at 09:00 ROSIE ULLOA MD Jul 16, 2018 10:01
--- NOTE | 2018-07-16 12:56 | PN ---
Date/Time of Note Date/Time of Note DATE: 07/16/18 TIME: 12:52 Assessment/Plan VTE Prophylaxis Risk score (from Nsg)>0 risk: 2 SCD applied (from Nsg): Yes SCD contraindicated: low risk/ambulating Pharmacological prophylaxis: LMWH Lines/Catheters IV Catheter Type (from Nrsg): [place] Urinary Cath still in place: Yes Reason Cath still needed: other (indicate) Assessment/Plan Hospital Course Assessment and plan 1. Acute renal failure, ukn etio. Supplement use? R/o MM/rhabdo/hep C, mod stable cont HD; may need permacath soon -quit drinking Monster/ tobacco 6 mnths ago. Occ having a Red Bull up until a while ago. Denies substance abuse. 2. Anemia likely of chronic disease. No active bleed. Check LDH/ haptoglobin. Transfuse for hemoglobin less than 7 3. Accelerated hypertension due to renal failure stable started therapy 4. Metabolic syndrome? 5. Metabolic acidosis due to renal failure, start bicarb/ HD 6. Past tobacco 7. Deconditioning S: No events no dyspnea chest pain. Status post initial HD session O: Vital signs stable PE No pallor/ JVD Regular Clear Benign overweight No edema, Result Diagram: 07/16/18 0515 07/16/18 0515 Results 24hrs Laboratory Tests Test 07/15/18 13:23 07/15/18 13:24 07/15/18 13:27 07/15/18 14:29 Prothrombin Time 15.3 H Prothrombin Time 1.2 Ratio INR International 1.20 Normalized Ratio Creatinine 43.25 H Lactate 988 H Dehydrogenase Creatine Kinase 1256 H Hemoglobin 5.9 *L Hematocrit 17.5 L Urine Color STRAW Urine Clarity CLEAR Urine pH 5.0 Urine Specific 1.013 [place] Urine Ketones NEGATIVE Urine Nitrite NEGATIVE Urine Bilirubin NEGATIVE Urine Urobilinogen NEGATIVE Urine Leukocyte NEGATIVE Esterase Urine Microscopic 2 RBC Urine Microscopic 7 H WBC Urine Amorphous FEW A Crystals Urine Bacteria FEW A Urine Eosinophils 0.0 % Urine Hemoglobin 1+ H Urine Random 155.81 Creatinine Urine Random 49 Sodium Urine Glucose NEGATIVE Urine Total 3+ H Protein Urine Opiates Positive Screen Urine Barbiturates Negative Urine Amphetamines Negative Screen Urine Negative Benzodiazepines Screen Urine Cocaine Negative Screen Urine Cannabinoids Negative Uric Acid 14.1 H Hepatitis B NEGATIVE Surface Antigen Test 07/15/18 14:32 07/15/18 16:00 07/15/18 16:25 07/15/18 20:08 Haptoglobin Pending Total Protein 7.0 (PEP) Albumin (PEP) Pending [id number] Pending [id number] Pending Beta Globulins Pending Gamma Globulins Pending Protein Pending Electrophoresis In terpret Blood Gas Specimen Blood arterial Source Arterial Blood 07/15/2018 2:42:29 Date Drawn PM Arterial Blood pH 7.492 H (Temp corrected) Arterial Blood 15.9 L pCO2 (Temp correct) Arterial Blood pO2 144.2 H (Temp corrected) Arterial Blood 11.9 L HCO3 Arterial Blood -10.3 L Base Excess Arterial Blood 98.3 H Oxygen Saturation [place] Test ACCEPTAB Arterial Blood Gas Left Radial Puncture Site Arterial 0.3 Blood Carboxyhemog lobin Arterial Blood 0.7 Methemoglobin Blood Gas A-a O2 29.5 H Differential Oxyhemoglobin 97.3 Percent Blood Gas 37.0 Temperature Blood Gas Modality NASAL CANNULA FiO2 27.0 Blood Gas Notified MDA Whom Blood Gas Notified 07/15/2018 2:48:01 Time PM Sodium Level 142 Potassium Level 3.9 Chloride Level 99 Carbon Dioxide 14 L Level Anion Gap 29 H Blood Urea 165 H Nitrogen Creatinine 43.87 H Est Glomerular 1 L Filtrat Rate mL/min Glucose Level 79 Calcium Level 6.6 L Troponin I 0.221 *H Test 07/16/18 05:15 White Blood Count 6.7 Red Blood Count 2.53 L Hemoglobin 7.1 #L Hematocrit 20.5 L Mean Corpuscular 81.0 L Volume Mean Corpuscular 28.1 L Hemoglobin Mean Corpuscular 34.6 Hemoglobin Concent Red Cell 13.2 Distribution Width Platelet Count 181 # Mean Platelet 10.1 Volume Immature 0.300 Granulocytes % Neutrophils % 64.5 Lymphocytes % 24.0 Monocytes % 9.4 Eosinophils % 1.5 Basophils % 0.3 Nucleated Red 0.0 Blood Cells % Immature 0.020 Granulocytes # Neutrophils # 4.3 Lymphocytes # 1.6 Monocytes # 0.6 Eosinophils # 0.1 Basophils # 0.0 Nucleated Red 0.0 Blood Cells # Sodium Level 140 Potassium Level 3.6 Chloride Level 98 Carbon Dioxide 23 Level Anion Gap 19 #H Blood Urea 119 #H Nitrogen Creatinine 34.47 #H Est Glomerular 2 L Filtrat Rate mL/min Glucose Level 145 # Hemoglobin A1c 6.0 H Calcium Level 7.0 L Magnesium Level 2.1 Total Bilirubin 0.1 L Direct Bilirubin 0.00 Indirect Bilirubin 0.1 Aspartate Amino 19 Transf (AST/SGOT) Alanine 17 Aminotransferase ( ALT/SGPT) Alkaline 65 Phosphatase Creatine Kinase 1050 H Total Protein 7.2 # Albumin 3.8 Globulin 3.40 H Albumin/Globulin 1.11 Ratio Exam/Review of Systems Exam Vitals Vital Signs Date Temp Pulse Resp B/P (MAP) Pulse Ox O2 O2 Flow FiO2 Time Delivery Rate 07/16/18 76 12:00 07/16/18 97.5 17 118/79 97 08:00 (92) 07/16/18 Room Air 06:00 07/15/18 3.0 22:48 Intake and Output 07/15/18 07/15/18 07/16/18 1515:00 23:00 07:00 IntakeIntake Total 605 ml 1050 ml OutputOutput Total 1340 ml 310 ml BalanceBalance -735 ml 740 ml Results Results 24hrs Laboratory Tests Test 07/15/18 13:23 07/15/18 13:24 07/15/18 13:27 07/15/18 14:29 Prothrombin Time 15.3 H Prothrombin Time 1.2 Ratio INR International 1.20 Normalized Ratio Creatinine 43.25 H Lactate 988 H Dehydrogenase Creatine Kinase 1256 H Hemoglobin 5.9 *L Hematocrit 17.5 L Urine Color STRAW Urine Clarity CLEAR Urine pH 5.0 Urine Specific 1.013 [place] Urine Ketones NEGATIVE Urine Nitrite NEGATIVE Urine Bilirubin NEGATIVE Urine Urobilinogen NEGATIVE Urine Leukocyte NEGATIVE Esterase Urine Microscopic 2 RBC Urine Microscopic 7 H WBC Urine Amorphous FEW A Crystals Urine Bacteria FEW A Urine Eosinophils 0.0 % Urine Hemoglobin 1+ H Urine Random 155.81 Creatinine Urine Random 49 Sodium Urine Glucose NEGATIVE Urine Total 3+ H Protein Urine Opiates Positive Screen Urine Barbiturates Negative Urine Amphetamines Negative Screen Urine Negative Benzodiazepines Screen Urine Cocaine Negative Screen Urine Cannabinoids Negative Uric Acid 14.1 H Hepatitis B NEGATIVE Surface Antigen Test 07/15/18 14:32 07/15/18 16:00 07/15/18 16:25 07/15/18 20:08 Haptoglobin Pending Total Protein 7.0 (PEP) Albumin (PEP) Pending [id number] Pending [id number] Pending Beta Globulins Pending Gamma Globulins Pending Protein Pending Electrophoresis In terpret Blood Gas Specimen Blood arterial Source Arterial Blood 07/15/2018 2:42:29 Date Drawn PM Arterial Blood pH 7.492 H (Temp corrected) Arterial Blood 15.9 L pCO2 (Temp correct) Arterial Blood pO2 144.2 H (Temp corrected) Arterial Blood 11.9 L HCO3 Arterial Blood -10.3 L Base Excess Arterial Blood 98.3 H Oxygen Saturation [place] Test ACCEPTAB Arterial Blood Gas Left Radial Puncture Site Arterial 0.3 Blood Carboxyhemog lobin Arterial Blood 0.7 Methemoglobin Blood Gas A-a O2 29.5 H Differential Oxyhemoglobin 97.3 Percent Blood Gas 37.0 Temperature Blood Gas Modality NASAL CANNULA FiO2 27.0 Blood Gas Notified MDA Whom Blood Gas Notified 07/15/2018 2:48:01 Time PM Sodium Level 142 Potassium Level 3.9 Chloride Level 99 Carbon Dioxide 14 L Level Anion Gap 29 H Blood Urea 165 H Nitrogen Creatinine 43.87 H Est Glomerular 1 L Filtrat Rate mL/min Glucose Level 79 Calcium Level 6.6 L Troponin I 0.221 *H Test 07/16/18 05:15 White Blood Count 6.7 Red Blood Count 2.53 L Hemoglobin 7.1 #L Hematocrit 20.5 L Mean Corpuscular 81.0 L Volume Mean Corpuscular 28.1 L Hemoglobin Mean Corpuscular 34.6 Hemoglobin Concent Red Cell 13.2 Distribution Width Platelet Count 181 # Mean Platelet 10.1 Volume Immature 0.300 Granulocytes % Neutrophils % 64.5 Lymphocytes % 24.0 Monocytes % 9.4 Eosinophils % 1.5 Basophils % 0.3 Nucleated Red 0.0 Blood Cells % Immature 0.020 Granulocytes # Neutrophils # 4.3 Lymphocytes # 1.6 Monocytes # 0.6 Eosinophils # 0.1 Basophils # 0.0 Nucleated Red 0.0 Blood Cells # Sodium Level 140 Potassium Level 3.6 Chloride Level 98 Carbon Dioxide 23 Level Anion Gap 19 #H Blood Urea 119 #H Nitrogen Creatinine 34.47 #H Est Glomerular 2 L Filtrat Rate mL/min Glucose Level 145 # Hemoglobin A1c 6.0 H Calcium Level 7.0 L Magnesium Level 2.1 Total Bilirubin 0.1 L Direct Bilirubin 0.00 Indirect Bilirubin 0.1 Aspartate Amino 19 Transf (AST/SGOT) Alanine 17 Aminotransferase ( ALT/SGPT) Alkaline 65 Phosphatase Creatine Kinase 1050 H Total Protein 7.2 # Albumin 3.8 Globulin 3.40 H Albumin/Globulin 1.11 Ratio Medications Medication Current Medications IV Flush (NS 3 ml) 3 ml PER PROTOCOL IV ; Start 07/15/18 at 13:30 Ondansetron HCl (Zofran Inj) 4 mg Q6H PRN IV NAUSEA/VOMITING; Start 07/15/18 at 13:30 Acetaminophen (Tylenol Tab) 650 mg Q6H PRN PO .PAIN 1-3 OR TEMP Last administered on 07/16/18at 09:51; Admin Dose 650 MG; Start 07/15/18 at 13:30 Acetaminophen/ Hydrocodone Bitart ([place] (5/325)) 1 tab Q6H PRN PO .MOD PAIN 4- 6; Start 07/15/18 at 13:30 Docusate Sodium (Colace) 100 mg Q12H PRN PO .CONSTIPATION; Start 07/15/18 at 13:30 Bisacodyl (Dulcolax) 5 mg DAILY PRN PO .CONSTIPATION; Start 07/15/18 at 13:30 Bisacodyl (Dulcolax Supp) 10 mg DAILY PRN [place] .CONSTIPATION; Start 07/15/18 at 13:30 Pantoprazole (Protonix Tab) 40 mg DAILY@06 PO Last administered on 07/16/18at 06:48; Admin Dose 40 MG; Start 07/16/18 at 06:00 Hydralazine HCl (Apresoline) 10 mg Q4H PRN PO SBP more than 150 mm Hg ; Start 07/15/18 at 13:30 Hydralazine HCl (Apresoline) 20 mg Q3H PRN IV ELEVATED SYSTOLIC BP; Start 07/15/18 at 13:30 Labetalol HCl (Normodyne) 100 mg TID PO Last administered on 07/15/18at 23:55; Admin Dose 100 MG; Start 07/15/18 at 14:00 Hydralazine HCl (Apresoline) 75 mg TID PO Last administered on 07/15/18at 23:57; Admin Dose 75 MG; Start 07/15/18 at 14:00 Nifedipine (Procardia Xl) 90 mg DAILY PO Last administered on 07/15/18at 17:06; Admin Dose 90 MG; Start 07/15/18 at 13:30 Heparin Sodium (Porcine) (Heparin (1000 Units/ml)) 4,000 unit AFTER DIALYSIS CATHETER Last administered on 07/15/18at 22:42; Admin Dose 4,000 UNIT; Start 07/15/18 at 15:00 Mannitol 50 ml @ 50 mls/5 min WITH DIALYSIS PRN IV DISEQUILIBRIUM SYNDROME PPX; Start 07/15/18 at 16:00 Albumin Human 100 ml @ 100 mls/hr WITH DIALYSIS PRN IV SBP <90 DURING DIALYSIS; Start 07/15/18 at 15:00 Sodium Chloride (NS) -To prime the dialy... DIRECTED FOR HD PRN IV HD; Start 07/15/18 at 15:00 Clonidine HCl (Catapres-Tts 3 Patch) 1 patch Sa@1000 TRANSDERM Last administered on 07/15/18at 17:07; Admin Dose 1 PATCH; Start 07/15/18 at 16:00 Sodium Bicarbonate 150 meq/Dextrose 1,000 ml @ 125 mls/hr Q8H IV Last administered on 07/16/18at 08:13; Admin Dose 125 MLS/HR; Start 07/15/18 at 16:30 Allopurinol (Zyloprim) 100 mg BID PO Last administered on 07/16/18at 09:52; Admin Dose 100 MG; Start 07/16/18 at 09:00 FATIMAH PARKS MD Jul 16, 2018 12:56
[2018-07-16] MEDS ORDERED: DOCUSATE SODIUM 100 MG CAP PO PRN (13:00)
--- NOTE | 2018-07-16 13:01 | CONS ---
Consult Date/Type/Reason Admit Date/Time Jul 15, 2018 at 12:54 Initial Consult Date 07/15/18 Type of Consultation: Urology Reason for Consultation Difficulty inserting a Shine catheter and acute renal failure Requesting Provider: FATIMAH PARKS MD Date/Time of Note DATE: 07/16/18 TIME: 12:57 Subjective The patient is awake and appears to be comfortable and states that he is feeling better today Objective Vitals Vital Signs Date Temp Pulse Resp B/P (MAP) Pulse Ox O2 O2 Flow FiO2 Time Delivery Rate 07/16/18 76 12:00 07/16/18 97.5 17 118/79 97 08:00 (92) 07/16/18 Room Air 06:00 07/15/18 3.0 22:48 Intake and Output 07/15/18 07/15/18 07/16/18 1515:00 23:00 07:00 IntakeIntake Total 605 ml 1050 ml OutputOutput Total 1340 ml 310 ml BalanceBalance -735 ml 740 ml Exam The Shine catheter is draining well and the urine is clear. He had an output of 700 mL and 200 mL since admission Results/Medications Result Diagram: 07/16/18 0515 07/16/18 0515 Results 24 hrs Laboratory Tests Test 07/15/18 13:23 07/15/18 13:24 07/15/18 13:27 07/15/18 14:29 Prothrombin Time 15.3 H Prothrombin Time 1.2 Ratio INR International 1.20 Normalized Ratio Creatinine 43.25 H Lactate 988 H Dehydrogenase Creatine Kinase 1256 H Hemoglobin 5.9 *L Hematocrit 17.5 L Urine Color STRAW Urine Clarity CLEAR Urine pH 5.0 Urine Specific 1.013 [place] Urine Ketones NEGATIVE Urine Nitrite NEGATIVE Urine Bilirubin NEGATIVE Urine Urobilinogen NEGATIVE Urine Leukocyte NEGATIVE Esterase Urine Microscopic 2 RBC Urine Microscopic 7 H WBC Urine Amorphous FEW A Crystals Urine Bacteria FEW A Urine Eosinophils 0.0 % Urine Hemoglobin 1+ H Urine Random 155.81 Creatinine Urine Random 49 Sodium Urine Glucose NEGATIVE Urine Total 3+ H Protein Urine Opiates Positive Screen Urine Barbiturates Negative Urine Amphetamines Negative Screen Urine Negative Benzodiazepines Screen Urine Cocaine Negative Screen Urine Cannabinoids Negative Uric Acid 14.1 H Hepatitis B NEGATIVE Surface Antigen Test 07/15/18 14:32 07/15/18 16:00 3/2/19 16:25 07/15/18 20:08 Haptoglobin Pending Total Protein 7.0 (PEP) Albumin (PEP) Pending Onpov-0-Amwachgmq Pending Urwgy-5-Yybjofpiy Pending Beta Globulins Pending Gamma Globulins Pending Protein Pending Electrophoresis In terpret Blood Gas Specimen Blood arterial Source Arterial Blood 07/15/2018 2:42:29 Date Drawn PM Arterial Blood pH 7.492 H (Temp corrected) Arterial Blood 15.9 L pCO2 (Temp correct) Arterial Blood pO2 144.2 H (Temp corrected) Arterial Blood 11.9 L HCO3 Arterial Blood -10.3 L Base Excess Arterial Blood 98.3 H Oxygen Saturation Ronan Test ACCEPTAB Arterial Blood Gas Left Radial Puncture Site Arterial 0.3 Blood Carboxyhemog lobin Arterial Blood 0.7 Methemoglobin Blood Gas A-a O2 29.5 H Differential Oxyhemoglobin 97.3 Percent Blood Gas 37.0 Temperature Blood Gas Modality NASAL CANNULA FiO2 27.0 Blood Gas Notified MDA Whom Blood Gas Notified 07/15/2018 2:48:01 Time PM Sodium Level 142 Potassium Level 3.9 Chloride Level 99 Carbon Dioxide 14 L Level Anion Gap 29 H Blood Urea 165 H Nitrogen Creatinine 43.87 H Est Glomerular 1 L Filtrat Rate mL/min Glucose Level 79 Calcium Level 6.6 L Troponin I 0.221 *H Test 07/16/18 05:15 White Blood Count 6.7 Red Blood Count 2.53 L Hemoglobin 7.1 #L Hematocrit 20.5 L Mean Corpuscular 81.0 L Volume Mean Corpuscular 28.1 L Hemoglobin Mean Corpuscular 34.6 Hemoglobin Concent Red Cell 13.2 Distribution Width Platelet Count 181 # Mean Platelet 10.1 Volume Immature 0.300 Granulocytes % Neutrophils % 64.5 Lymphocytes % 24.0 Monocytes % 9.4 Eosinophils % 1.5 Basophils % 0.3 Nucleated Red 0.0 Blood Cells % Immature 0.020 Granulocytes # Neutrophils # 4.3 Lymphocytes # 1.6 Monocytes # 0.6 Eosinophils # 0.1 Basophils # 0.0 Nucleated Red 0.0 Blood Cells # Sodium Level 140 Potassium Level 3.6 Chloride Level 98 Carbon Dioxide 23 Level Anion Gap 19 #H Blood Urea 119 #H Nitrogen Creatinine 34.47 #H Est Glomerular 2 L Filtrat Rate mL/min Glucose Level 145 # Hemoglobin A1c 6.0 H Calcium Level 7.0 L Magnesium Level 2.1 Total Bilirubin 0.1 L Direct Bilirubin 0.00 Indirect Bilirubin 0.1 Aspartate Amino 19 Transf (AST/SGOT) Alanine 17 Aminotransferase ( ALT/SGPT) Alkaline 65 Phosphatase Creatine Kinase 1050 H Total Protein 7.2 # Albumin 3.8 Globulin 3.40 H Albumin/Globulin 1.11 Ratio Home Meds No Active Prescriptions or Reported Meds Medications Current Medications IV Flush (NS 3 ml) 3 ml PER PROTOCOL IV ; Start 07/15/18 at 13:30 Ondansetron HCl (Zofran Inj) 4 mg Q6H PRN IV NAUSEA/VOMITING; Start 07/15/18 at 13:30 Acetaminophen (Tylenol Tab) 650 mg Q6H PRN PO .PAIN 1-3 OR TEMP Last administered on 07/16/18at 09:51; Admin Dose 650 MG; Start 07/15/18 at 13:30 Acetaminophen/ Hydrocodone Bitart ([place] (5/325)) 1 tab Q6H PRN PO .MOD PAIN 4- 6; Start 07/15/18 at 13:30 Docusate Sodium (Colace) 100 mg Q12H PRN PO .CONSTIPATION; Start 07/15/18 at 13:30 Bisacodyl (Dulcolax) 5 mg DAILY PRN PO .CONSTIPATION; Start 07/15/18 at 13:30 Bisacodyl (Dulcolax Supp) 10 mg DAILY PRN [place] .CONSTIPATION; Start 07/15/18 at 13:30 Pantoprazole (Protonix Tab) 40 mg DAILY@06 PO Last administered on 07/16/18at 06:48; Admin Dose 40 MG; Start 07/16/18 at 06:00 Hydralazine HCl (Apresoline) 10 mg Q4H PRN PO SBP more than 150 mm Hg ; Start 07/15/18 at 13:30 Hydralazine HCl (Apresoline) 20 mg Q3H PRN IV ELEVATED SYSTOLIC BP; Start 07/15/18 at 13:30 Labetalol HCl (Normodyne) 100 mg TID PO Last administered on 07/15/18at 23:55; Admin Dose 100 MG; Start 07/15/18 at 14:00 Hydralazine HCl (Apresoline) 75 mg TID PO Last administered on 07/15/18at 23:57; Admin Dose 75 MG; Start 07/15/18 at 14:00 Nifedipine (Procardia Xl) 90 mg DAILY PO Last administered on 07/15/18at 17:06; Admin Dose 90 MG; Start 07/15/18 at 13:30 Heparin Sodium (Porcine) (Heparin (1000 Units/ml)) 4,000 unit AFTER DIALYSIS CATHETER Last administered on 07/15/18at 22:42; Admin Dose 4,000 UNIT; Start 07/15/18 at 15:00 Mannitol 50 ml @ 50 mls/5 min WITH DIALYSIS PRN IV DISEQUILIBRIUM SYNDROME PPX; Start 07/15/18 at 16:00 Albumin Human 100 ml @ 100 mls/hr WITH DIALYSIS PRN IV SBP <90 DURING DIALYSIS; Start 07/15/18 at 15:00 Sodium Chloride (NS) -To prime the dialy... DIRECTED FOR HD PRN IV HD; Start 07/15/18 at 15:00 Clonidine HCl (Catapres-Tts 3 Patch) 1 patch Sa@1000 TRANSDERM Last administered on 07/15/18at 17:07; Admin Dose 1 PATCH; Start 07/15/18 at 16:00 Sodium Bicarbonate 150 meq/Dextrose 1,000 ml @ 125 mls/hr Q8H IV Last administered on 07/16/18at 08:13; Admin Dose 125 MLS/HR; Start 07/15/18 at 16:30 Allopurinol (Zyloprim) 100 mg BID PO Last administered on 07/16/18at 09:52; Admin Dose 100 MG; Start 07/16/18 at 09:00 Assessment/Plan Hospital Course (Demo Recall) 26-year-old previously healthy man with multiple presented to the emergency room with complaints of generalized weakness, palpitations, lethargy, paresthesias, muscle spasms, blurry vision, and daily intermittent vomiting. He states he has been sick over the last few weeks and he lost just about 60 pounds. He denies loss of consciousness, no diarrhea, no recent travel, no recent medication or drug use. As he presented to the emergency room he was found to have renal failure and the nursing staff attempted to insert the catheter for him unsuccessfully. Therefore a urological consultation was requested. Patient denies any prior history of catheterization. He denies any history of sexually transmitted disease. He had no prior surgeries. He denies any history of rheumatic fever, scarlet fever. His father does have prostate cancer and was treated. Prior to his present illness he has been voiding well with a good stream and no dysuria and no hematuria On the exam his bladder was not distended. I did however insert a 14 [place] coud catheter for him and obtained about 60 mL of clear urine. The Shine cat heter has been draining well since and he had output of 700 mL and 200 mL since his admission and his creatinine has come down to 34.4. The potassium is 3.6. Urologically will just leave the Shine catheter in place STAR LINK MD Jul 16, 2018 13:01
[2018-07-16] MEDS: HEPARIN 1000 UNITS/ML 10 ML INJ CATHETER SCH (21:23)
[2018-07-17] VITALS (27 sets, daily range): BP systolic 87–127; BP diastolic 41–76; PULSE 68–87; RESP 16–20
[2018-07-17] MEDS: PANTOPRAZOLE (EC) 40 MG TAB PO SCH (06:09)
[2018-07-17] MEDS: HYDROCODONE/APAP (5/325) TAB PO PRN ×2 (06:10→20:40)
[2018-07-17] MEDS: NIFEdipine (XL) 90 MG TAB PO SCH (08:46)
[2018-07-17] MEDS: ALLOPURINOL 100 MG TAB PO SCH ×2 (08:46→22:14)
[2018-07-17] MEDS: LABETALOL 100 MG TAB PO SCH ×3 (08:46→20:05)
[2018-07-17] MEDS: ENOXAPARIN 30 MG/0.3 ML SYG SC SCH (08:51)
--- NOTE | 2018-07-17 10:07 | PN ---
Date/Time of Note Date/Time of Note DATE: 07/17/18 TIME: 10:06 Assessment/Plan VTE Prophylaxis Risk score (from Nsg)>0 risk: 7 SCD applied (from Nsg): Yes Pharmacological prophylaxis: LMWH Lines/Catheters IV Catheter Type (from Nrsg): RYAN Urinary Cath still in place: Yes Reason Cath still needed: urinary retention Assessment/Plan Hospital Course SUBJECTIVE: Denies any nausea. Denies any chest pain. OBJECTIVE: Physical Exam General: Morbidly obese, 28 year-old male lying in bed in no apparent distress. HEENT: Normocephalic, atraumatic. Eyes: Anicteric sclerae, conjunctivae clear. ENT: Nasal septum midline, oral mucosa moist. Neck supple, no JVD noticed. Respiratory: Bilaterally clear breath sounds. No use of accessory muscles of respiration. No adventitious breath sounds. Cardiovascular: S1, S2 heard. Regular rate and rhythm. Abdomen: Soft, nontender, and nondistended. Bowel sounds positive in all 4 quadrants. Genitourinary: Deferred. Extremities: No cyanosis, no clubbing, no edema. Peripheral pulses palpable. Neurologic: Cranial nerves II through XII grossly intact. The patient is awake, alert, and oriented. Skin: Normal skin turgor. No skin rashes. Labs & Vitals per chart ASSESSMENT & PLAN 28-year-old male with underlying obesity and previously healthy who came to the emergency room with multiple complaints including generalized weakness, palpitations, lethargy, paresthesias, muscle spasms, and intermittent vomiting. The patient was noticed to be in acute renal failure with a BUN and creatinine of 162 and 44 respectively. The patient also had underlying metabolic acidosis. The patient had minimally elevated troponins. The patient was admitted to inpatient setting for further treatment and evaluation. 1. Acute renal failure. -Newly started on hemodialysis on 07/15/2018. -Etiology unclear. Renal ultrasound showing evidence of CKD on the right side and nonvisualization of the left kidney. -Being followed by nephrology. 2. Hypertensive urgency. -Continue antihypertensives -Blood pressure currently well controlled. 3. Hyperuricemia. -Continue allopurinol. 4. Microcytic, hypochromic anemia. -Status post 2 units of PRBC transfusion. -Etiology unclear. -On Neupogen. -Pending haptoglobin. 5. Prediabetes. -Hemoglobin A1c 6.0. -Monitor serum glucose levels. 6. Morbid obesity. -BMI more than 35 kg/m,. -Advised weight reduction. 7. Fluids, electrolytes, and nutrition. -Renal diet. 8. DVT prophylaxis. -Subcutaneous Lovenox (renal dose). 9. Plan. -Continue hemodialysis as per nephrology. -Obtain arrangements for outpatient hemodialysis. The patient was seen in collaboration with Dr. Pitts. Result Diagram: 07/16/1815 07/16/18 0515 Results 24hrs Laboratory Tests Test 07/17/18 04:54 Hepatitis B Surface Antigen NEGATIVE Hepatitis B Core Total Antibody NEGATIVE Hepatitis C Antibody NEGATIVE HIV (1&2) Antibody NEGATIVE Exam/Review of Systems Exam Vitals Vital Signs Date Temp Pulse Resp B/P (MAP) Pulse Ox O2 O2 Flow FiO2 Time Delivery Rate 07/17/18 80 08:01 07/17/18 97.9 18 126/76 100 Room Air 07:05 (93) 07/15/18 3.0 22:48 Intake and Output 07/16/18 07/16/18 07/17/18 1515:00 23:00 07:00 IntakeIntake Total 1960 ml 490 ml 1000 ml OutputOutput Total 300 ml 1560 ml 425 ml BalanceBalance 1660 ml -1070 ml 575 ml Results Results 24hrs Laboratory Tests Test 07/17/18 04:54 Hepatitis B Surface Antigen NEGATIVE Hepatitis B Core Total Antibody NEGATIVE Hepatitis C Antibody NEGATIVE HIV (1&2) Antibody NEGATIVE Medications Medication Current Medications IV Flush (NS 3 ml) 3 ml PER PROTOCOL IV ; Start 07/15/18 at 13:30 Ondansetron HCl (Zofran Inj) 4 mg Q6H PRN IV NAUSEA/VOMITING; Start 07/15/18 at 13:30 Acetaminophen (Tylenol Tab) 650 mg Q6H PRN PO .PAIN 1-3 OR TEMP Last administered on 07/16/18at 09:51; Admin Dose 650 MG; Start 07/15/18 at 13:30 Acetaminophen/ Hydrocodone Bitart ([place] (5/325)) 1 tab Q6H PRN PO .MOD PAIN 4- 6 Last administered on 07/17/18at 06:10; Admin Dose 1 TAB; Start 07/15/18 at 13:30 Docusate Sodium (Colace) 100 mg Q12H PRN PO .CONSTIPATION Last administered on 07/17/18 06:29; Admin Dose 100 MG; Start 07/15/18 at 13:30 Bisacodyl (Dulcolax) 5 mg DAILY PRN PO .CONSTIPATION; Start 07/15/18 at 13:30 Bisacodyl (Dulcolax Supp) 10 mg DAILY PRN [place] .CONSTIPATION; Start 07/15/18 at 13:30 Pantoprazole (Protonix Tab) 40 mg DAILY@06 PO Last administered on 07/17/18 06:09; Admin Dose 40 MG; Start 07/16/18 at 06:00 Hydralazine HCl (Apresoline) 10 mg Q4H PRN PO SBP more than 150 mm Hg ; Start 07/15/18 at 13:30 Hydralazine HCl (Apresoline) 20 mg Q3H PRN IV ELEVATED SYSTOLIC BP; Start 07/15/18 at 13:30 Labetalol HCl (Normodyne) 100 mg TID PO Last administered on 07/17/18 08:46; Admin Dose 100 MG; Start 07/15/18 at 14:00 Hydralazine HCl (Apresoline) 75 mg TID PO Last administered on 07/17/18 08:47; Admin Dose 75 MG; Start 07/15/18 at 14:00 Nifedipine (Procardia Xl) 90 mg DAILY PO Last administered on 07/17/18 08:46; Admin Dose 90 MG; Start 07/15/18 at 13:30 Heparin Sodium (Porcine) (Heparin (1000 Units/ml)) 4,000 unit AFTER DIALYSIS CATHETER Last administered on 07/16/18 21:23; Admin Dose 2,600 UNIT; Start 07/15/18 at 15:00 Mannitol 50 ml @ 50 mls/5 min WITH DIALYSIS PRN IV DISEQUILIBRIUM SYNDROME PPX; Start 07/15/18 at 16:00 Albumin Human 100 ml @ 100 mls/hr WITH DIALYSIS PRN IV SBP <90 DURING DIALYSIS; Start 07/15/18 at 15:00 Sodium Chloride (NS) -To prime the dialy... DIRECTED FOR HD PRN IV HD; Start 07/15/18 at 15:00 Clonidine HCl (Catapres-Tts 3 Patch) 1 patch Sa@1000 TRANSDERM Last administered on 07/15/18 17:07; Admin Dose 1 PATCH; Start 07/15/18 at 16:00 Allopurinol (Zyloprim) 100 mg BID PO Last administered on 07/17/18at 08:46; Admin Dose 100 MG; Start 07/16/18 at 09:00 Enoxaparin Sodium (Lovenox) 30 mg DAILY SC Last administered on 07/17/18at 08:51; Admin Dose 30 MG; Start 07/17/18 at 09:00 Docusate Sodium (Colace) 200 mg BID PRN PO CONSTIPATION; Start 07/16/18 at 13:00 Epoetin Tom (Epogen (Esrd)) 8,000 units MoWeFr@17 SC ; Start 07/17/18 at 17:00 ANDREW MCPHERSON NP Jul 17, 2018 10:07
--- NOTE | 2018-07-17 11:50 | CONS ---
Assessment/Plan Assessment/Plan Assessment/Plan (Daily) 1. acute kidney failure with acute uremic encephalopathy - started on HD on 07/15/18 2. severe metabolic acidosis - Improving 3. severe anemia with Hb 5.9 s/p PRBC transfusion 4. no past medical history 9. accelerated HTN Plan: s/p R IJ [place] catheter placement on 07/15/18- s/p HD sessions x 2 in last two day- will plan for another HD today HIV, Hepatitis panel Non reactive Suprisingly Renal US showed Right kidney medical Renal disease( CKD) and left kidney not visualized Uric acid 14- allopurinol 100mg PO BID Epogen 8000 units SQ TID MWF Hydralazien 50mg pO TID, IV prn will keep mcdaniel catheter in till tuesday morning for strict I/O- collect 24 hr urine collection for protein and creatinine clearance to decide extermination inspector HD plan will have him See a SW to apply for MediCal will follow up Consultation Date/Type/Reason Admit Date/Time Jul 15, 2018 at 12:54 Initial Consult Date 07/15/18 Type of Consult NEPHROLOGY Requesting Provider: FATIMAH PARKS MD Date/Time of Note DATE: 07/17/18 TIME: 11:50 24 HR Interval Summary Free Text/Dictation doing better, S/p 2 sessions of HD, Bp stable, afebrile Exam/Review of Systems Exam Vitals Vital Signs Date Temp Pulse Resp B/P (MAP) Pulse Ox O2 O2 Flow FiO2 Time Delivery Rate 07/17/18 80 08:01 07/17/18 97.9 18 126/76 100 Room Air 07:05 (93) 07/15/18 3.0 22:48 Intake and Output 07/16/18 07/16/18 07/17/18 1515:00 23:00 07:00 IntakeIntake Total 1960 ml 490 ml 1000 ml OutputOutput Total 300 ml 1560 ml 425 ml BalanceBalance 1660 ml -1070 ml 575 ml Exam Constitutional: alert Respiratory: crackles/rales, diminished breath sounds Cardiovascular: regular rate and rhythm, nl pulses Gastrointestinal: soft, non-tender Musculoskeletal: muscle weakness, swelling, other (muscle spasm) Extremities: normal pulses Neurological: PATTERNMAKER HAND II-XII intact, nl mental status, nl speech, nl strength Skin: nl turgor Lymph: nl lymph nodes Results Result Diagram: 07/16/18 0515 07/16/18 0515 Results 24hrs Laboratory Tests Test 07/17/18 04:54 07/17/18 05:15 Hepatitis B Surface Antigen NEGATIVE Hepatitis B Core Total Antibody NEGATIVE Hepatitis C Antibody NEGATIVE HIV (1&2) Antibody NEGATIVE Iron Level 75 Total Iron Binding Capacity 206 L Percent Iron Saturation 36 Ferritin Pending Triglycerides Level 243 H Cholesterol Level 213 H LDL Cholesterol, Calculated 140 HDL Cholesterol 24 L Cholesterol/HDL Ratio 8.8 Medications Medication Current Medications IV Flush (NS 3 ml) 3 ml PER PROTOCOL IV ; Start 07/15/18 at 13:30 Ondansetron HCl (Zofran Inj) 4 mg Q6H PRN IV NAUSEA/VOMITING; Start 07/15/18 at 13:30 Acetaminophen (Tylenol Tab) 650 mg Q6H PRN PO .PAIN 1-3 OR TEMP Last administered on 07/16/18at 09:51; Admin Dose 650 MG; Start 07/15/18 at 13:30 Acetaminophen/ Hydrocodone Bitart ([place] (5/325)) 1 tab Q6H PRN PO .MOD PAIN 4- 6 Last administered on 07/17/18at 06:10; Admin Dose 1 TAB; Start 07/15/18 at 13:30 Docusate Sodium (Colace) 100 mg Q12H PRN PO .CONSTIPATION Last administered on 07/17/18at 06:29; Admin Dose 100 MG; Start 07/15/18 at 13:30 Bisacodyl (Dulcolax) 5 mg DAILY PRN PO .CONSTIPATION; Start 07/15/18 at 13:30 Bisacodyl (Dulcolax Supp) 10 mg DAILY PRN [place] .CONSTIPATION; Start 07/15/18 at 13:30 Pantoprazole (Protonix Tab) 40 mg DAILY@06 PO Last administered on 07/17/18at 06:09; Admin Dose 40 MG; Start 07/16/18 at 06:00 Hydralazine HCl (Apresoline) 10 mg Q4H PRN PO SBP more than 150 mm Hg ; Start 07/15/18 at 13:30 Hydralazine HCl (Apresoline) 20 mg Q3H PRN IV ELEVATED SYSTOLIC BP; Start 07/15/18 at 13:30 Labetalol HCl (Normodyne) 100 mg TID PO Last administered on 07/17/18 08:46; Admin Dose 100 MG; Start 07/15/18 at 14:00 Hydralazine HCl (Apresoline) 75 mg TID PO Last administered on 07/17/18 08:47; Admin Dose 75 MG; Start 07/15/18 at 14:00 Nifedipine (Procardia Xl) 90 mg DAILY PO Last administered on 07/17/18 08:46; Admin Dose 90 MG; Start 07/15/18 at 13:30 Heparin Sodium (Porcine) (Heparin (1000 Units/ml)) 4,000 unit AFTER DIALYSIS CATHETER Last administered on 07/16/18 21:23; Admin Dose 2,600 UNIT; Start 07/15/18 at 15:00 Mannitol 50 ml @ 50 mls/5 min WITH DIALYSIS PRN IV DISEQUILIBRIUM SYNDROME PPX; Start 07/15/18 at 16:00 Albumin Human 100 ml @ 100 mls/hr WITH DIALYSIS PRN IV SBP <90 DURING DIALYSIS; Start 07/15/18 at 15:00 Sodium Chloride (NS) -To prime the dialy... DIRECTED FOR HD PRN IV HD; Start 07/15/18 at 15:00 Clonidine HCl (Catapres-Tts 3 Patch) 1 patch Sa@1000 TRANSDERM Last administered on 07/15/18 17:07; Admin Dose 1 PATCH; Start 07/15/18 at 16:00 Allopurinol (Zyloprim) 100 mg BID PO Last administered on 07/17/18 08:46; Admin Dose 100 MG; Start 07/16/18 at 09:00 Enoxaparin Sodium (Lovenox) 30 mg DAILY SC Last administered on 07/17/18 08:51; Admin Dose 30 MG; Start 07/17/18 at 09:00 Docusate Sodium (Colace) 200 mg BID PRN PO CONSTIPATION; Start 07/16/18 at 13:00 Epoetin Tom (Epogen (Esrd)) 8,000 units MoWeFr@17 SC ; Start 07/17/18 at 17:00 ROSIE ULLOA MD Jul 17, 2018 11:50
[2018-07-17] MEDS: BISACODYL (EC) 5 MG TAB PO PRN (11:51)
[2018-07-17] MEDS ORDERED: EPOETIN 4000 UNITS/1 ML INJ (ESRD) SC SCH (17:00)
--- NOTE | 2018-07-17 18:27 | RADRPT ---
Echocardiogram Report Patient Name: MIRTHA TINOCOPatient ID: [id number] : 1990 (28y 4m)Study Date: 07/17/2018 1:12:20 PM Gender: Filibertoion #: [id number] Tech: Alec Vazquezwa [facility] Location: 8- Ref.Physician: ANDREW MCPHERSON Height(Cm): BSA: Weight(Kg): Quality: AdequateAccount #: Procedures: Echocardiographic Report: Transthoracic echocardiogram with complete 2D, M-Mode, and doppler examination. Indications: Evaluate Left Ventricular function. Measurements: 2D/M Mode Doppler Measurement Value Normal Range Measurement Value Normal Range LVIDd 2D 5.4 [ 4.2 - 5.8 ] cm AV Peak Jean-Pierre 1.3 [ 100.0 - 170.0 ] cm/sec LVIDs 2D 3.7 [ 2.5 - 4.0 ] cm AV Peak PG 7.0 [ 2.0 - 9.0 ] mmHg LVPWd 2D 1.4 [ 0.6 - 1.0 ] cm LVOT Peak Jean-Pierre 1.0 [ 70.0 - 110.0 ] cm/sec IVSd 2D 1.4 [ 0.6 - 1.0 ] cm LVOT Peak PG 4.0 [ 2.0 - 6.0 ] mmHg AoR Diam 2D 3.2 [ 2.6 - 3.4 ] cm MV E Peak Jean-Pierre 0.7 [ 60.0 - 130.0 ] cm/sec EDV 2D 139.0 [ 62.0 - 150.0 ] ml MV A Peak Jean-Pierre 0.9 [ 100.0 - 120.0 ] cm/sec ESV 2D 59.3 [ 21.0 - 61.0 ] ml MV E/A 0.7 [ 0.8 - 1.5 ] ratio EF 2D 57.3 [ 52.0 - 72.0 ] percent MV Decel Time 187 [ 104 - 258 ] msec LA Dimen 2D 4.1 [ 3.0 - 4.0 ] cm Lat E` Jean-Pierre 0.1 [ 10.0 - 15.0 ] cm/sec Lateral E/E` 13.3 [ 1.0 - 2.0 ] ratio Med E` Jean-Pierre 0.1 cm/sec MV E/A 0.7 [ 0.8 - 1.5 ] ratio TR Peak Jean-Pierre 2.4 [ 100.0 - 280.0 ] cm/sec TR Peak PG 24.0 mmHg RVSP 34.0 [ 10.0 - 36.0 ] mmHg Findings: Left Ventricle: Lower limits of normal systolic function. Normal left ventricular cavity size. Moderate concentric left ventricular hypertrophy. Ejection fraction is visually estimated at 50 %. Tissue Doppler/Mitral Doppler indices are consistent with impaired relaxation (Stage I diastolic dysfunction). Right Ventricle: Normal right ventricular size. Normal right ventricular systolic function. Left Atrium: There is mild enlargement of left atrium. Right Atrium: The right atrium is normal in size. Mitral Valve: Mild mitral leaflet calcification. Mild mitral annular calcification. Trace mitral regurgitation. Aortic Valve: No significant aortic stenosis or insufficiency. Aortic cusps appear mildly calcified. Tricuspid Valve: Normal appearance of the tricuspid valve. Estimated peak PA systolic pressure 34 mmHg. There is mild tricuspid regurgitation. Pericardium: Normal pericardium with no significant pericardial effusion. Aorta: Normal aortic root. IVC: Normal size and normal respiratory collapse consistent with normal right atrial pressure. Conclusions: Lower limits of normal systolic function. Normal left ventricular cavity size. Moderate concentric left ventricular hypertrophy. Ejection fraction is visually estimated at 50 %. Tissue Doppler/Mitral Doppler indices are consistent with impaired relaxation (Stage I diastolic dysfunction). No significant aortic stenosis or insufficiency. Aortic cusps appear mildly calcified. Normal appearance of the tricuspid valve. Estimated peak PA systolic pressure 34 mmHg. There is mild tricuspid regurgitation. Mild mitral leaflet calcification. Mild mitral annular calcification. Trace mitral regurgitation. Electronically Signed By: Ameya Majano 2018-07-17 18:26:25 PST
[2018-07-17] MEDS ORDERED: ALTEPLASE (CATHFLO) 2 MG INJ CATHETER STA (20:47)
[2018-07-17] MEDS: EPOETIN 4000 UNITS/1 ML INJ (ESRD) SC SCH (22:16)
[2018-07-18] VITALS (12 sets, daily range): BP systolic 116–128; BP diastolic 60–71; PULSE 80–130; RESP 18–20
[2018-07-18] MEDS: HYDROCODONE/APAP (5/325) TAB PO PRN ×2 (02:43→09:04)
[2018-07-18] MEDS: ACETAMINOPHEN 325 MG TAB PO PRN (04:24)
[2018-07-18] MEDS: PANTOPRAZOLE (EC) 40 MG TAB PO SCH (05:37)
[2018-07-18] MEDS: ENOXAPARIN 30 MG/0.3 ML SYG SC SCH (09:00)
[2018-07-18] MEDS: ALLOPURINOL 100 MG TAB PO SCH ×2 (09:04→20:46)
[2018-07-18] MEDS: NIFEdipine (XL) 90 MG TAB PO SCH (09:05)
[2018-07-18] MEDS: LABETALOL 100 MG TAB PO SCH ×3 (09:05→20:45)
[2018-07-18] MEDS: BISACODYL (EC) 5 MG TAB PO PRN (10:36)
--- NOTE | 2018-07-18 15:43 | PN ---
Date/Time of Note Date/Time of Note DATE: 07/18/18 TIME: 15:43 Assessment/Plan VTE Prophylaxis Risk score (from Ns)>0 risk: 7 SCD applied (from [facility] [place] No SCD contraindicated: other Pharmacological prophylaxis: LMWH Lines/Catheters IV [facility] Type ([facility] [place] Urinary Cath still in place: Yes Reason Cath still needed: urinary retention Assessment/Plan Hospital Course SUBJECTIVE: Denies any nausea. Denies any chest pain. OBJECTIVE: Physical Exam General: Morbidly obese, 28 year-old male lying in bed in no apparent distress. HEENT: Normocephalic, atraumatic. Eyes: Anicteric sclerae, conjunctivae clear. ENT: Nasal septum midline, oral mucosa moist. Neck supple, no JVD noticed. Respiratory: Bilaterally clear breath sounds. No use of accessory muscles of respiration. No adventitious breath sounds. Cardiovascular: S1, S2 heard. Regular rate and rhythm. Abdomen: Soft, nontender, and nondistended. Bowel sounds positive in all 4 quadrants. Genitourinary: Deferred. Extremities: No cyanosis, no clubbing, no edema. Peripheral pulses palpable. Neurologic: Cranial nerves II through XII grossly intact. The patient is awake, alert, and oriented. Skin: Normal skin turgor. No skin rashes. Labs & Vitals per chart ASSESSMENT & PLAN 28-year-old male with underlying obesity and previously healthy who came to the emergency room with multiple complaints including generalized weakness, palpitations, lethargy, paresthesias, muscle spasms, and intermittent vomiting. The patient was noticed to be in acute renal failure with a BUN and creatinine of 162 and 44 respectively. The patient also had underlying metabolic acidosis. The patient had minimally elevated troponins. The patient was admitted to inpatient setting for further treatment and evaluation. 1. Acute renal failure. -Newly started on hemodialysis on 07/15/2018. -Etiology unclear. Renal ultrasound showing evidence of CKD on the right side and nonvisualization of the left kidney. -Being followed by nephrology. 2. Hypertensive urgency. -Continue antihypertensives -Blood pressure currently well controlled. 3. Hyperuricemia. -Continue allopurinol. 4. Microcytic, hypochromic anemia. -Status post 2 units of PRBC transfusion. -Etiology unclear. -On Neupogen. -Pending haptoglobin. 5. Prediabetes. -Hemoglobin A1c 6.0. -Monitor serum glucose levels. 6. Morbid obesity. -BMI more than 35 kg/m,. -Advised weight reduction. 7. Fluids, electrolytes, and nutrition. -Renal diet. 8. DVT prophylaxis. -Subcutaneous Lovenox (renal dose). 9. Plan. -Continue hemodialysis as per nephrology. -Obtain arrangements for outpatient hemodialysis. The patient was seen in collaboration with Dr. Pitts. Result Diagram: 07/18/1851107/18/18511 Results 24hrs Laboratory Tests Test 07/18/18 05:12 07/18/18 07:26 White Blood Count 6.3 Red Blood Count 2.56 L Hemoglobin 7.0 L Hematocrit 21.6 L Mean Corpuscular Volume 84.4 Mean Corpuscular Hemoglobin 27.3 L Mean Corpuscular Hemoglobin Concent 32.4 Red Cell Distribution Width 13.2 Platelet Count 181 Mean Platelet Volume 10.0 Immature Granulocytes % 0.200 Neutrophils % 59.0 Lymphocytes % 26.2 Monocytes % 11.1 H Eosinophils % 3.0 Basophils % 0.5 Nucleated Red Blood Cells % 0.0 Immature Granulocytes # 0.010 Neutrophils # 3.7 Lymphocytes # 1.7 Monocytes # 0.7 Eosinophils # 0.2 Basophils # 0.0 Nucleated Red Blood Cells # 0.0 Sodium Level 136 Potassium Level 4.0 Chloride Level 95 L Carbon Dioxide Level 27 Anion Gap 14 H Blood Urea Nitrogen 43 #H Creatinine 14.87 #H Est Glomerular Filtrat Rate mL/min 5 L Glucose Level 126 Calcium Level 7.4 L Phosphorus Level 5.7 H Magnesium Level 1.8 Lab Scanned Report BLOOD TRANSFUSION Exam/Review of Systems Exam Vitals Vital Signs Date Temp Pulse Resp B/P (MAP) Pulse Ox O2 O2 Flow FiO2 Time Delivery Rate 07/18/18 97.7 91 18 121/71 100 Room Air 15:05 (88) 07/15/18 3.0 22:48 Intake and Output 07/17/18 07/17/18 07/18/18 1515:00 23:00 07:00 IntakeIntake Total 800 ml 800 ml OutputOutput Total 2450 ml 250 ml BalanceBalance -1650 ml 550 ml Results Results 24hrs Laboratory Tests Test 07/18/18 05:12 07/18/18 07:26 White Blood Count 6.3 Red Blood Count 2.56 L Hemoglobin 7.0 L Hematocrit 21.6 L Mean Corpuscular Volume 84.4 Mean Corpuscular Hemoglobin 27.3 L Mean Corpuscular Hemoglobin Concent 32.4 Red Cell Distribution Width 13.2 Platelet Count 181 Mean Platelet Volume 10.0 Immature Granulocytes % 0.200 Neutrophils % 59.0 Lymphocytes % 26.2 Monocytes % 11.1 H Eosinophils % 3.0 Basophils % 0.5 Nucleated Red Blood Cells % 0.0 Immature Granulocytes # 0.010 Neutrophils # 3.7 Lymphocytes # 1.7 Monocytes # 0.7 Eosinophils # 0.2 Basophils # 0.0 Nucleated Red Blood Cells # 0.0 Sodium Level 136 Potassium Level 4.0 Chloride Level 95 L Carbon Dioxide Level 27 Anion Gap 14 H Blood Urea Nitrogen 43 #H Creatinine 14.87 #H Est Glomerular Filtrat Rate mL/min 5 L Glucose Level 126 Calcium Level 7.4 L Phosphorus Level 5.7 H Magnesium Level 1.8 Lab Scanned Report BLOOD TRANSFUSION Medications Medication Current Medications IV Flush (NS 3 ml) 3 ml PER PROTOCOL IV ; Start 07/15/18 at 13:30 Ondansetron HCl (Zofran Inj) 4 mg Q6H PRN IV NAUSEA/VOMITING; Start 07/15/18 at 13:30 Acetaminophen (Tylenol Tab) 650 mg Q6H PRN PO .PAIN 1-3 OR TEMP Last administered on 07/18/18 04:24; Admin Dose 650 MG; Start 07/15/18 at 13:30 Acetaminophen/ Hydrocodone Bitart ([place] (5/325)) 1 tab Q6H PRN PO .MOD PAIN 4- 6 Last administered on 07/18/18 09:04; Admin Dose 1 TAB; Start 07/15/18 at 13:30 Docusate Sodium (Colace) 100 mg Q12H PRN PO .CONSTIPATION Last administered on 07/17/18 06:29; Admin Dose 100 MG; Start 07/15/18 at 13:30 Bisacodyl (Dulcolax) 5 mg DAILY PRN PO .CONSTIPATION Last administered on 07/18/18 10:36; Admin Dose 5 MG; Start 07/15/18 at 13:30 Bisacodyl (Dulcolax Supp) 10 mg DAILY PRN [place] .CONSTIPATION; Start 07/15/18 at 13:30 Pantoprazole (Protonix Tab) 40 mg DAILY@06 PO Last administered on 07/18/18 05:37; Admin Dose 40 MG; Start 07/16/18 at 06:00 Hydralazine HCl (Apresoline) 10 mg Q4H PRN PO SBP more than 150 mm Hg ; Start 07/15/18 at 13:30 Hydralazine HCl (Apresoline) 20 mg Q3H PRN IV ELEVATED SYSTOLIC BP; Start 07/15/18 at 13:30 Labetalol HCl (Normodyne) 100 mg TID PO Last administered on 07/18/18 15:18; Admin Dose 100 MG; Start 07/15/18 at 14:00 Hydralazine HCl (Apresoline) 75 mg TID PO Last administered on 07/18/18 15:19; Admin Dose 75 MG; Start 07/15/18 at 14:00 Nifedipine (Procardia Xl) 90 mg DAILY PO Last administered on 07/18/18 09:05; Admin Dose 90 MG; Start 07/15/18 at 13:30 Heparin Sodium (Porcine) (Heparin (1000 Units/ml)) 4,000 unit AFTER DIALYSIS CATHETER Last administered on 07/16/18 21:23; Admin Dose 2,600 UNIT; Start 07/15/18 at 15:00 Mannitol 50 ml @ 50 mls/5 min WITH DIALYSIS PRN IV DISEQUILIBRIUM SYNDROME PPX; Start 07/15/18 at 16:00 Albumin Human 100 ml @ 100 mls/hr WITH DIALYSIS PRN IV SBP <90 DURING DIALYSIS Last administered on 07/17/18 19:04; Admin Dose 100 MLS/HR; Start 07/15/18 at 15:00 Sodium Chloride (NS) -To prime the dialy... DIRECTED FOR HD PRN IV HD; Start 07/15/18 at 15:00 Clonidine HCl (Catapres-Tts 3 Patch) 1 patch Sa@1000 TRANSDERM Last admini stered on 07/15/18 17:07; Admin Dose 1 PATCH; Start 07/15/18 at 16:00 Allopurinol (Zyloprim) 100 mg BID PO Last administered on 07/18/18 09:04; Admin Dose 100 MG; Start 07/16/18 at 09:00 Enoxaparin Sodium (Lovenox) 30 mg DAILY SC Last administered on 3/5/19at 09:00; Admin Dose 30 MG; Start 07/17/18 at 09:00 Docusate Sodium (Colace) 200 mg BID PRN PO CONSTIPATION; Start 07/16/18 at 13:00 Epoetin Tom (Epogen (Esrd)) 8,000 units MoWeFr@17 SC Last administered on 07/17/18at 22:16; Admin Dose 8,000 UNITS; Start 07/17/18 at 21:00 ANDREW MCPHERSON NP Jul 18, 2018 15:43
--- NOTE | 2018-07-18 18:37 | CONS ---
Assessment/Plan Assessment/Plan Assessment/Plan (Daily) 1. acute kidney failure with acute uremic encephalopathy - started on HD on 07/15/18 2. severe metabolic acidosis - Improving 3. severe anemia with Hb 5.9 s/p PRBC transfusion 4. no past medical history 9. accelerated HTN Plan: s/p R IJ [place] catheter placement on 07/15/18- s/p HD sessions x 3 days in a row HIV, Hepatitis panel Non reactive Suprisingly Renal US showed Right kidney medical Renal disease( CKD) and left kidney not visualized Uric acid 14- allopurinol 100mg PO BID Epogen 8000 units SQ TID MWF Hydralazien 50mg pO TID, IV prn 24 hr urine collection started at 6 am HD ordered tentatively for Tuesday but we will decide based on his 24 hr urine collection will follow up Consultation Date/Type/Reason Admit Date/Time Jul 15, 2018 at 12:54 Initial Consult Date 07/15/18 Type of Consult NEPHROLOGY Requesting Provider: FATIMAH PARKS MD Date/Time of Note DATE: 07/18/18 TIME: 18:37 24 HR Interval Summary Free Text/Dictation plan for 24 hr urine collection today, Pt s/p HD 3 days in a row, Bp stable Exam/Review of Systems Exam Vitals Vital Signs Date Temp Pulse Resp B/P (MAP) Pulse Ox O2 O2 Flow FiO2 Time Delivery Rate 07/18/18 88 16:01 07/18/18 97.7 18 121/71 100 Room Air 15:05 (88) 07/15/18 3.0 22:48 Intake and Output 07/17/18 07/17/18 07/18/18 1515:00 23:00 07:00 IntakeIntake Total 800 ml 800 ml OutputOutput Total 2450 ml 250 ml BalanceBalance -1650 ml 550 ml Exam Constitutional: alert Respiratory: crackles/rales, diminished breath sounds Cardiovascular: regular rate and rhythm, nl pulses Gastrointestinal: soft, non-tender Musculoskeletal: muscle weakness, swelling, other (muscle spasm) Extremities: normal pulses Neurological: [employer] II-XII intact, nl mental status, nl speech, nl strength Skin: nl turgor Lymph: nl lymph nodes Results Result Diagram: 07/18/1851107/18/18511 Results 24hrs Laboratory Tests Test 07/18/18 05:12 07/18/18 07:26 White Blood Count 6.3 Red Blood Count 2.56 L Hemoglobin 7.0 L Hematocrit 21.6 L Mean Corpuscular Volume 84.4 Mean Corpuscular Hemoglobin 27.3 L Mean Corpuscular Hemoglobin Concent 32.4 Red Cell Distribution Width 13.2 Platelet Count 181 Mean Platelet Volume 10.0 Immature Granulocytes % 0.200 Neutrophils % 59.0 Lymphocytes % 26.2 Monocytes % 11.1 H Eosinophils % 3.0 Basophils % 0.5 Nucleated Red Blood Cells % 0.0 Immature Granulocytes # 0.010 Neutrophils # 3.7 Lymphocytes # 1.7 Monocytes # 0.7 Eosinophils # 0.2 Basophils # 0.0 Nucleated Red Blood Cells # 0.0 Sodium Level 136 Potassium Level 4.0 Chloride Level 95 L Carbon Dioxide Level 27 Anion Gap 14 H Blood Urea Nitrogen 43 #H Creatinine 14.87 #H Est Glomerular Filtrat Rate mL/min 5 L Glucose Level 126 Calcium Level 7.4 L Phosphorus Level 5.7 H Magnesium Level 1.8 Lab Scanned Report BLOOD TRANSFUSION Medications Medication Current Medications IV Flush (NS 3 ml) 3 ml PER PROTOCOL IV ; Start 07/15/18 at 13:30 Ondansetron HCl (Zofran Inj) 4 mg Q6H PRN IV NAUSEA/VOMITING; Start 07/15/18 at 13:30 Acetaminophen (Tylenol Tab) 650 mg Q6H PRN PO .PAIN 1-3 OR TEMP Last administered on 07/18/18 04:24; Admin Dose 650 MG; Start 07/15/18 at 13:30 Acetaminophen/ Hydrocodone Bitart ([place] (5/325)) 1 tab Q6H PRN PO .MOD PAIN 4- 6 Last administered on 07/18/18 09:04; Admin Dose 1 TAB; Start 07/15/18 at 13:30 Docusate Sodium (Colace) 100 mg Q12H PRN PO .CONSTIPATION Last administered on 07/17/18 06:29; Admin Dose 100 MG; Start 07/15/18 at 13:30 Bisacodyl (Dulcolax) 5 mg DAILY PRN PO .CONSTIPATION Last administered on 07/18/18 10:36; Admin Dose 5 MG; Start 07/15/18 at 13:30 Bisacodyl (Dulcolax Supp) 10 mg DAILY PRN [place] .CONSTIPATION; Start 07/15/18 at 13:30 Pantoprazole (Protonix Tab) 40 mg DAILY@06 PO Last administered on 07/18/18 05:37; Admin Dose 40 MG; Start 07/16/18 at 06:00 Hydralazine HCl (Apresoline) 10 mg Q4H PRN PO SBP more than 150 mm Hg ; Start 07/15/18 at 13:30 Hydralazine HCl (Apresoline) 20 mg Q3H PRN IV ELEVATED SYSTOLIC BP; Start 07/15/18 at 13:30 Labetalol HCl (Normodyne) 100 mg TID PO Last administered on 07/18/18 15:18; Admin Dose 100 MG; Start 07/15/18 at 14:00 Hydralazine HCl (Apresoline) 75 mg TID PO Last administered on 07/18/18 15:19; Admin Dose 75 MG; Start 07/15/18 at 14:00 Nifedipine (Procardia Xl) 90 mg DAILY PO Last administered on 07/18/18 09:05; Admin Dose 90 MG; Start 07/15/18 at 13:30 Heparin Sodium (Porcine) (Heparin (1000 Units/ml)) 4,000 unit AFTER DIALYSIS CATHETER Last administered on 07/16/18 21:23; Admin Dose 2,600 UNIT; Start 07/15/18 at 15:00 Mannitol 50 ml @ 50 mls/5 min WITH DIALYSIS PRN IV DISEQUILIBRIUM SYNDROME PPX; Start 07/15/18 at 16:00 Albumin Human 100 ml @ 100 mls/hr WITH DIALYSIS PRN IV SBP <90 DURING DIALYSIS Last administered on 07/17/18 19:04; Admin Dose 100 MLS/HR; Start 07/15/18 at 15:00 Sodium Chloride (NS) -To prime the dialy... DIRECTED FOR HD PRN IV HD; Start 07/15/18 at 15:00 Clonidine HCl (Catapres-Tts 3 Patch) 1 patch Sa@1000 TRANSDERM Last administered on 07/15/18 17:07; Admin Dose 1 PATCH; Start 07/15/18 at 16:00 Allopurinol (Zyloprim) 100 mg BID PO Last administered on 07/18/18 09:04; Admin Dose 100 MG; Start 07/16/18 at 09:00 Enoxaparin Sodium (Lovenox) 30 mg DAILY SC Last administered on 07/18/18at 09:00; Admin Dose 30 MG; Start 07/17/18 at 09:00 Docusate Sodium (Colace) 200 mg BID PRN PO CONSTIPATION; Start 07/16/18 at 13:00 Epoetin Tom (Epogen (Esrd)) 8,000 units MoWeFr@17 SC Last administered on 07/17/18at 22:16; Admin Dose 8,000 UNITS; Start 07/17/18 at 21:00 ROSIE ULLOA MD Jul 18, 2018 18:37
[2018-07-19] VITALS (26 sets, daily range): BP systolic 116–149; BP diastolic 65–85; PULSE 80–130; RESP 16–19
--- NOTE | 2018-07-19 05:36 | PN ---
Date/Time of Note Date/Time of Note DATE: 07/19/18 TIME: 05:36 Assessment/Plan VTE Prophylaxis Risk score (from Ns)>0 risk: 7 SCD applied (from Ns): No SCD contraindicated: other Pharmacological prophylaxis: LMWH Lines/Catheters IV Catheter Type (from [facility]): RYAN Urinary Cath still in place: Yes Reason Cath still needed: other (indicate) Assessment/Plan Hospital Course SUBJECTIVE: Denies any nausea. Denies any chest pain. OBJECTIVE: Physical Exam General: Morbidly obese, 28 year-old male lying in bed in no apparent distress. HEENT: Normocephalic, atraumatic. Eyes: Anicteric sclerae, conjunctivae clear. ENT: Nasal septum midline, oral mucosa moist. Neck supple, no JVD noticed. Respiratory: Bilaterally clear breath sounds. No use of accessory muscles of respiration. No adventitious breath sounds. Cardiovascular: S1, S2 heard. Regular rate and rhythm. Abdomen: Soft, nontender, and nondistended. Bowel sounds positive in all 4 quadrants. Genitourinary: Deferred. Extremities: No cyanosis, no clubbing, no edema. Peripheral pulses palpable. Neurologic: Cranial nerves II through XII grossly intact. The patient is awake, alert, and oriented. Skin: Normal skin turgor. No skin rashes. Labs & Vitals per chart ASSESSMENT & PLAN 28-year-old male with underlying obesity and previously healthy who came to the emergency room with multiple complaints including generalized weakness, palp itations, lethargy, paresthesias, muscle spasms, and intermittent vomiting. The patient was noticed to be in acute renal failure with a BUN and creatinine of 162 and 44 respectively. The patient also had underlying metabolic acidosis. The patient had minimally elevated troponins. The patient was admitted to inpatient setting for further treatment and evaluation. 1. Acute renal failure. -Newly started on hemodialysis on 07/15/2018. -Etiology unclear. Renal ultrasound showing evidence of CKD on the right side and nonvisualization of the left kidney. -Being followed by nephrology. 2. Hypertensive urgency. -Continue antihypertensives -Blood pressure currently well controlled. 3. Hyperuricemia. -Continue allopurinol. 4. Microcytic, hypochromic anemia. -Status post 2 units of PRBC transfusion. -Etiology unclear. -On Neupogen. -Pending haptoglobin. 5. Prediabetes. -Hemoglobin A1c 6.0. -Monitor serum glucose levels. 6. Dyslipidemia. -Low-cholesterol diet. 7. Morbid obesity. -BMI more than 35 kg/m. -Weight reduction advised. 8. Fluids, electrolytes, and nutrition. -Renal diet. 9. DVT prophylaxis. -Subcutaneous Lovenox (renal dose). 10. Plan. -Continue hemodialysis as per nephrology. -Obtain arrangements for outpatient hemodialysis. The patient was seen in collaboration with Dr. Pitts. Result Diagram: 07/18/1812 07/18/18 0512 Results 24hrs Laboratory Tests Test 07/18/18 07:26 Lab Scanned Report BLOOD TRANSFUSION Exam/Review of Systems Exam Vitals Vital Signs Date Temp Pulse Resp B/P (MAP) Pulse Ox O2 O2 Flow FiO2 Time Delivery Rate 07/19/18 87 04:00 07/19/18 97.5 18 118/65 100 03:57 (82) 07/18/18 Room Air 15:05 07/15/18 3.0 22:48 Intake and Output 07/18/18 07/18/18 07/19/18 1515:00 23:00 07:00 IntakeIntake Total 650 ml OutputOutput Total 200 ml BalanceBalance 450 ml Results Results 24hrs Laboratory Tests Test 07/18/18 07:26 Lab Scanned Report BLOOD TRANSFUSION Medications Medication Current Medications IV Flush (NS 3 ml) 3 ml PER PROTOCOL IV ; Start 07/15/18 at 13:30 Ondansetron HCl (Zofran Inj) 4 mg Q6H PRN IV NAUSEA/VOMITING; Start 07/15/18 at 13:30 Acetaminophen (Tylenol Tab) 650 mg Q6H PRN PO .PAIN 1-3 OR TEMP Last administered on 07/18/18at 04:24; Admin Dose 650 MG; Start 07/15/18 at 13:30 Acetaminophen/ Hydrocodone Bitart ([place] (5/325)) 1 tab Q6H PRN PO .MOD PAIN 4- 6 Last administered on 07/18/18at 09:04; Admin Dose 1 TAB; Start 07/15/18 at 13:30 Docusate Sodium (Colace) 100 mg Q12H PRN PO .CONSTIPATION Last administered on 07/17/18 06:29; Admin Dose 100 MG; Start 07/15/18 at 13:30 Bisacodyl (Dulcolax) 5 mg DAILY PRN PO .CONSTIPATION Last administered on 07/18/18 10:36; Admin Dose 5 MG; Start 07/15/18 at 13:30 Bisacodyl (Dulcolax Supp) 10 mg DAILY PRN [place] .CONSTIPATION; Start 07/15/18 at 13:30 Pantoprazole (Protonix Tab) 40 mg DAILY@06 PO Last administered on 07/18/18 05:37; Admin Dose 40 MG; Start 07/16/18 at 06:00 Hydralazine HCl (Apresoline) 10 mg Q4H PRN PO SBP more than 150 mm Hg ; Start 07/15/18 at 13:30 Hydralazine HCl (Apresoline) 20 mg Q3H PRN IV ELEVATED SYSTOLIC BP; Start 07/15/18 at 13:30 Labetalol HCl (Normodyne) 100 mg TID PO Last administered on 07/18/18 20:45; Admin Dose 100 MG; Start 07/15/18 at 14:00 Hydralazine HCl (Apresoline) 75 mg TID PO Last administered on 07/18/18 20:45; Admin Dose 75 MG; Start 07/15/18 at 14:00 Nifedipine (Procardia Xl) 90 mg DAILY PO Last administered on 07/18/18 09:05; Admin Dose 90 MG; Start 07/15/18 at 13:30 Heparin Sodium (Porcine) (Heparin (1000 Units/ml)) 4,000 unit AFTER DIALYSIS CATHETER Last administered on 07/16/18 21:23; Admin Dose 2,600 UNIT; Start 07/15/18 at 15:00 Mannitol 50 ml @ 50 mls/5 min WITH DIALYSIS PRN IV DISEQUILIBRIUM SYNDROME PPX; Start 07/15/18 at 16:00 Albumin Human 100 ml @ 100 mls/hr WITH DIALYSIS PRN IV SBP <90 DURING DIALYSIS Last administered on 07/17/18 19:04; Admin Dose 100 MLS/HR; Start 07/15/18 at 15:00 Sodium Chloride (NS) -To prime the dialy... DIRECTED FOR HD PRN IV HD; Start 07/15/18 at 15:00 Clonidine HCl (Catapres-Tts 3 Patch) 1 patch Sa@1000 TRANSDERM Last administered on 07/15/18 17:07; Admin Dose 1 PATCH; Start 07/15/18 at 16:00 Allopurinol (Zyloprim) 100 mg BID PO Last administered on 07/18/18at 20:46; Admin Dose 100 MG; Start 07/16/18 at 09:00 Enoxaparin Sodium (Lovenox) 30 mg DAILY SC Last administered on 07/18/18at 09:00; Admin Dose 30 MG; Start 07/17/18 at 09:00 Docusate Sodium (Colace) 200 mg BID PRN PO CONSTIPATION; Start 07/16/18 at 13:00 Epoetin Tom (Epogen (Esrd)) 8,000 units MoWeFr@17 SC Last administered on 07/17/18at 22:16; Admin Dose 8,000 UNITS; Start 07/17/18 at 21:00 ANDREW MCPHERSON NP Jul 19, 2018 05:36
[2018-07-19] MEDS: PANTOPRAZOLE (EC) 40 MG TAB PO SCH (07:20)
--- NOTE | 2018-07-19 08:56 | CONS ---
Assessment/Plan Assessment/Plan Assessment/Plan (Daily) 1. acute kidney failure with acute uremic encephalopathy - started on HD on 07/15/18 2. severe metabolic acidosis - Improving 3. severe anemia with Hb 5.9 s/p PRBC transfusion 4. no past medical history 9. accelerated HTN Plan: s/p R IJ [place] catheter placement on 07/15/18- 24 hr urine collection showed only 550 cc urine with creatinine clearance 1.6- will order Hd for today and will keep pt on MWF schedule. HIV, Hepatitis panel Non reactive Suprisingly Renal US showed Right kidney medical Renal disease( CKD) and left kidney not visualized Uric acid 14- allopurinol 100mg PO BID Epogen 8000 units SQ TID MWF Hydralazien 50mg pO TID, IV prn d/c mcdaniel catheter, pt will need outpatient HD placement will follow up Consultation Date/Type/Reason Admit Date/Time Jul 15, 2018 at 12:54 Initial Consult Date 07/15/18 Type of Consult NEPHROLOGY Requesting Provider: FATIMAH PARKS MD Date/Time of Note DATE: 07/19/18 TIME: 08:56 Exam/Review of Systems Exam Vitals Vital Signs Date Temp Pulse Resp B/P (MAP) Pulse Ox O2 O2 Flow FiO2 Time Delivery Rate 07/19/18 97.6 88 19 120/77 99 07:19 (91) 07/18/18 Room Air 15:05 07/15/18 3.0 22:48 Intake and Output 07/18/18 07/18/18 07/19/18 1515:00 23:00 07:00 IntakeIntake Total 650 ml 250 ml OutputOutput Total 200 ml 300 ml BalanceBalance 450 ml -50 ml Exam Constitutional: alert Respiratory: crackles/rales, diminished breath sounds Cardiovascular: regular rate and rhythm, nl pulses Gastrointestinal: soft, non-tender Musculoskeletal: muscle weakness, swelling, other (muscle spasm) Extremities: normal pulses Neurological: GANG SAW OPERATOR II-XII intact, nl mental status, nl speech, nl strength Skin: nl turgor Lymph: nl lymph nodes Results Result Diagram: 07/19/18 0545 07/19/18 0545 Results 24hrs Laboratory Tests Test 07/19/18 05:45 07/19/18 06:00 White Blood Count 7.5 Red Blood Count 2.57 L Hemoglobin 7.1 L Hematocrit 21.8 L Mean Corpuscular Volume 84.8 Mean Corpuscular Hemoglobin 27.6 L Mean Corpuscular Hemoglobin Concent 32.6 Red Cell Distribution Width 13.3 Platelet Count 192 Mean Platelet Volume 10.1 Immature Granulocytes % 0.400 Neutrophils % 56.7 Lymphocytes % 29.0 Monocytes % 10.4 Eosinophils % 3.1 Basophils % 0.4 Nucleated Red Blood Cells % 0.0 Immature Granulocytes # 0.030 Neutrophils # 4.2 Lymphocytes # 2.2 Monocytes # 0.8 Eosinophils # 0.2 Basophils # 0.0 Nucleated Red Blood Cells # 0.0 Sodium Level 136 Potassium Level 4.1 Chloride Level 98 Carbon Dioxide Level 24 Anion Gap 14 H Blood Urea Nitrogen 53 H Creatinine 17.32 #H Est Glomerular Filtrat Rate mL/min 4 L Glucose Level 94 Calcium Level 7.2 L Phosphorus Level 7.7 #H Magnesium Level 1.7 Urine Random Creatinine 72.48 Urine Total Volume 24 Hours 550 Urine Creatinine Timed 24 Creatinine Clearance 1.6 L Medications Medication Current Medications IV Flush (NS 3 ml) 3 ml PER PROTOCOL IV ; Start 07/15/18 at 13:30 Ondansetron HCl (Zofran Inj) 4 mg Q6H PRN IV NAUSEA/VOMITING; Start 07/15/18 at 13:30 Acetaminophen (Tylenol Tab) 650 mg Q6H PRN PO .PAIN 1-3 OR TEMP Last administered on 07/18/18 04:24; Admin Dose 650 MG; Start 07/15/18 at 13:30 Acetaminophen/ Hydrocodone Bitart ([place] (5/325)) 1 tab Q6H PRN PO .MOD PAIN 4- 6 Last administered on 07/18/18 09:04; Admin Dose 1 TAB; Start 07/15/18 at 13:30 Docusate Sodium (Colace) 100 mg Q12H PRN PO .CONSTIPATION Last administered on 07/17/18 06:29; Admin Dose 100 MG; Start 07/15/18 at 13:30 Bisacodyl (Dulcolax) 5 mg DAILY PRN PO .CONSTIPATION Last administered on 10:36; Admin Dose 5 MG; Start 07/15/18 at 13:30 Bisacodyl (Dulcolax Supp) 10 mg DAILY PRN [place] .CONSTIPATION; Start 07/15/18 at 13:30 Pantoprazole (Protonix Tab) 40 mg DAILY@06 PO Last administered on 07/19/18 07:20; Admin Dose 40 MG; Start 07/16/18 at 06:00 Hydralazine HCl (Apresoline) 10 mg Q4H PRN PO SBP more than 150 mm Hg ; Start 07/15/18 at 13:30 Hydralazine HCl (Apresoline) 20 mg Q3H PRN IV ELEVATED SYSTOLIC BP; Start 07/15/18 at 13:30 Labetalol HCl (Normodyne) 100 mg TID PO Last administered on 07/18/18 20:45; Admin Dose 100 MG; Start 07/15/18 at 14:00 Hydralazine HCl (Apresoline) 75 mg TID PO Last administered on 07/18/18 20:45; Admin Dose 75 MG; Start 07/15/18 at 14:00 Nifedipine (Procardia Xl) 90 mg DAILY PO Last administered on 07/18/18 09:05; Admin Dose 90 MG; Start 07/15/18 at 13:30 Heparin Sodium (Porcine) (Heparin (1000 Units/ml)) 4,000 unit AFTER DIALYSIS CATHETER Last administered on 07/16/18 21:23; Admin Dose 2,600 UNIT; Start 07/15/18 at 15:00 Mannitol 50 ml @ 50 mls/5 min WITH DIALYSIS PRN IV DISEQUILIBRIUM SYNDROME PPX; Start 07/15/18 at 16:00 Albumin Human 100 ml @ 100 mls/hr WITH DIALYSIS PRN IV SBP <90 DURING DIALYSIS Last administered on 07/17/18 19:04; Admin Dose 100 MLS/HR; Start 07/15/18 at 15:00 Sodium Chloride (NS) -To prime the dialy... DIRECTED FOR HD PRN IV HD; Start 07/15/18 at 15:00 Clonidine HCl (Catapres-Tts 3 Patch) 1 patch Sa@1000 TRANSDERM Last administered on 07/15/18 17:07; Admin Dose 1 PATCH; Start 07/15/18 at 16:00 Allopurinol (Zyloprim) 100 mg BID PO Last administered on 07/18/18at 20:46; Admin Dose 100 MG; Start 07/16/18 at 09:00 Enoxaparin Sodium (Lovenox) 30 mg DAILY SC Last administered on 07/18/18at 09:00; Admin Dose 30 MG; Start 07/17/18 at 09:00 Docusate Sodium (Colace) 200 mg BID PRN PO CONSTIPATION; Start 07/16/18 at 13:00 Epoetin Tom (Epogen (Esrd)) 8,000 units MoWeFr@17 SC Last administered on 07/17/18at 22:16; Admin Dose 8,000 UNITS; Start 07/17/18 at 21:00 ROSIE ULLOA MD Jul 19, 2018 08:56
[2018-07-19] MEDS: LABETALOL 100 MG TAB PO SCH ×3 (09:17→20:14)
[2018-07-19] MEDS: ALLOPURINOL 100 MG TAB PO SCH ×2 (09:17→20:15)
[2018-07-19] MEDS: NIFEdipine (XL) 90 MG TAB PO SCH (09:17)
[2018-07-19] MEDS: ENOXAPARIN 30 MG/0.3 ML SYG SC SCH (09:22)
[2018-07-19] MEDS: EPOETIN 4000 UNITS/1 ML INJ (ESRD) SC SCH (18:31)
[2018-07-19] MEDS: HEPARIN 1000 UNITS/ML 10 ML INJ CATHETER SCH (18:37)
[2018-07-20] VITALS (10 sets, daily range): BP systolic 110–126; BP diastolic 59–77; PULSE 85–101; RESP 16–20
[2018-07-20] MEDS: PANTOPRAZOLE (EC) 40 MG TAB PO SCH (05:30)
[2018-07-20] MEDS: HYDROCODONE/APAP (5/325) TAB PO PRN (05:54)
[2018-07-20] MEDS: ALLOPURINOL 100 MG TAB PO SCH ×2 (08:38→22:38)
[2018-07-20] MEDS: NIFEdipine (XL) 90 MG TAB PO SCH (08:38)
[2018-07-20] MEDS: LABETALOL 100 MG TAB PO SCH ×3 (08:38→22:38)
[2018-07-20] MEDS: ENOXAPARIN 30 MG/0.3 ML SYG SC SCH (08:42)
[2018-07-20] MEDS: ACETAMINOPHEN 325 MG TAB PO PRN (09:05)
--- NOTE | 2018-07-20 09:14 | PN ---
Date/Time of Note Date/Time of Note DATE: 07/20/18 TIME: 09:14 Assessment/Plan VTE Prophylaxis Risk score (from Ns)>0 risk: 4 SCD applied (from Nsg): Yes Pharmacological prophylaxis: NA/contraindicated Pharm contraindication: anticoag not tolerated Lines/Catheters IV [facility] Burt cath Urinary Cath still in place: Yes Reason Cath still needed: other (indicate) Assessment/Plan Hospital Course SUBJECTIVE: Denies any nausea. Denies any chest pain. OBJECTIVE: Physical Exam General: Morbidly obese, 28 year-old male lying in bed in no apparent distress. HEENT: Normocephalic, atraumatic. Eyes: Anicteric sclerae, conjunctivae clear. ENT: Nasal septum midline, oral mucosa moist. Neck supple, no JVD noticed. Respiratory: Bilaterally clear breath sounds. No use of accessory muscles of respiration. No adventitious breath sounds. Cardiovascular: S1, S2 heard. Regular rate and rhythm. Abdomen: Soft, nontender, and nondistended. Bowel sounds positive in all 4 quadrants. Genitourinary: Deferred. Extremities: No cyanosis, no clubbing, no edema. Peripheral pulses palpable. Neurologic: Cranial nerves II through XII grossly intact. The patient is awake, alert, and oriented. Skin: Normal skin turgor. No skin rashes. Labs & Vitals per chart ASSESSMENT & PLAN 28-year-old male with underlying obesity and previously healthy who came to the emergency room with multiple complaints including generalized weakness, palpitations, lethargy, paresthesias, muscle spasms, and intermittent vomiting. The patient was noticed to be in acute renal failure with a BUN and creatinine of 162 and 44 respectively. The patient also had underlying metabolic acidosis. The patient had minimally elevated troponins. The patient was admitted to inpatient setting for further treatment and evaluation. 1. Acute renal failure. -Newly started on hemodialysis on 07/15/2018. -Etiology unclear. Renal ultrasound showing evidence of CKD on the right side and nonvisualization of the left kidney. -Being followed by nephrology. 2. Hypertensive urgency. -Continue antihypertensives -Blood pressure currently well controlled. 3. Hyperuricemia. -Continue allopurinol. 4. Microcytic, hypochromic anemia. -Status post 2 units of PRBC transfusion. -Etiology unclear. -On Neupogen. -Pending haptoglobin. 5. Prediabetes. -Hemoglobin A1c 6.0. -Monitor serum glucose levels. 6. Dyslipidemia. -Low-cholesterol diet. 7. Morbid obesity. -BMI more than 35 kg/m. -Weight reduction advised. 8. Fluids, electrolytes, and nutrition. -Renal diet. 9. DVT prophylaxis. -Subcutaneous Lovenox (renal dose). 10. Plan. -Continue hemodialysis as per nephrology. -Obtain arrangements for outpatient hemodialysis. The patient was seen in collaboration with Dr. Pitts. Result Diagram: 07/20/1852807/20/18528 Results 24hrs Laboratory Tests Test 07/20/18 05:29 White Blood Count 6.7 Red Blood Count 2.69 L Hemoglobin 7.4 L Hematocrit 23.2 L Mean Corpuscular Volume 86.2 Mean Corpuscular Hemoglobin 27.5 L Mean Corpuscular Hemoglobin Concent 31.9 L Red Cell Distribution Width 13.4 Platelet Count 220 Mean Platelet Volume 10.6 H Immature Granulocytes % 0.400 Neutrophils % 58.5 Lymphocytes % 25.5 Monocytes % 12.5 H Eosinophils % 2.8 Basophils % 0.3 Nucleated Red Blood Cells % 0.0 Immature Granulocytes # 0.030 Neutrophils # 3.9 Lymphocytes # 1.7 Monocytes # 0.8 Eosinophils # 0.2 Basophils # 0.0 Nucleated Red Blood Cells # 0.0 Sodium Level 139 Potassium Level 4.6 Chloride Level 103 Carbon Dioxide Level 24 Anion Gap 12 Blood Urea Nitrogen 37 #H Creatinine 13.09 #H Est Glomerular Filtrat Rate mL/min 6 L Glucose Level 99 Calcium Level 7.7 L Phosphorus Level 6.4 H Magnesium Level 2.0 Exam/Review of Systems Exam Vitals Vital Signs Date Temp Pulse Resp B/P (MAP) Pulse Ox O2 O2 Flow FiO2 Time Delivery Rate 07/20/18 98.5 89 18 110/59 96 Room Air 07:49 (76) Intake and Output 07/19/18 07/19/18 07/20/18 1515:00 23:00 07:00 IntakeIntake Total 800 ml OutputOutput Total 400 ml 2500 ml BalanceBalance -400 ml -1700 ml Results Results 24hrs Laboratory Tests Test 07/20/18 05:29 White Blood Count 6.7 Red Blood Count 2.69 L Hemoglobin 7.4 L Hematocrit 23.2 L Mean Corpuscular Volume 86.2 Mean Corpuscular Hemoglobin 27.5 L Mean Corpuscular Hemoglobin Concent 31.9 L Red Cell Distribution Width 13.4 Platelet Count 220 Mean Platelet Volume 10.6 H Immature Granulocytes % 0.400 Neutrophils % 58.5 Lymphocytes % 25.5 Monocytes % 12.5 H Eosinophils % 2.8 Basophils % 0.3 Nucleated Red Blood Cells % 0.0 Immature Granulocytes # 0.030 Neutrophils # 3.9 Lymphocytes # 1.7 Monocytes # 0.8 Eosinophils # 0.2 Basophils # 0.0 Nucleated Red Blood Cells # 0.0 Sodium Level 139 Potassium Level 4.6 Chloride Level 103 Carbon Dioxide Level 24 Anion Gap 12 Blood Urea Nitrogen 37 #H Creatinine 13.09 #H Est Glomerular Filtrat Rate mL/min 6 L Glucose Level 99 Calcium Level 7.7 L Phosphorus Level 6.4 H Magnesium Level 2.0 Medications Medication Current Medications IV Flush (NS 3 ml) 3 ml PER PROTOCOL IV ; Start 07/15/18 at 13:30 Ondansetron HCl (Zofran Inj) 4 mg Q6H PRN IV NAUSEA/VOMITING; Start 07/15/18 at 13:30 Acetaminophen (Tylenol Tab) 650 mg Q6H PRN PO .PAIN 1-3 OR TEMP Last administered on 07/20/18 09:05; Admin Dose 650 MG; Start 07/15/18 at 13:30 Acetaminophen/ Hydrocodone Bitart ([place] (5/325)) 1 tab Q6H PRN PO .MOD PAIN 4- 6 Last administered on 07/20/18 05:54; Admin Dose 1 TAB; Start 07/15/18 at 13:30 Docusate Sodium (Colace) 100 mg Q12H PRN PO .CONSTIPATION Last administered on 07/17/18 06:29; Admin Dose 100 MG; Start 07/15/18 at 13:30 Bisacodyl (Dulcolax) 5 mg DAILY PRN PO .CONSTIPATION Last administered on 07/18/18 10:36; Admin Dose 5 MG; Start 07/15/18 at 13:30 Bisacodyl (Dulcolax Supp) 10 mg DAILY PRN [place] .CONSTIPATION; Start 07/15/18 at 13:30 Pantoprazole (Protonix Tab) 40 mg DAILY@06 PO Last administered on 07/20/18 05:30; Admin Dose 40 MG; Start 07/16/18 at 06:00 Hydralazine HCl (Apresoline) 10 mg Q4H PRN PO SBP more than 150 mm Hg ; Start 07/15/18 at 13:30 Hydralazine HCl (Apresoline) 20 mg Q3H PRN IV ELEVATED SYSTOLIC BP; Start 07/15/18 at 13:30 Labetalol HCl (Normodyne) 100 mg TID PO Last administered on 07/20/18 08:38; Admin Dose 100 MG; Start 07/15/18 at 14:00 Hydralazine HCl (Apresoline) 75 mg TID PO Last administered on 07/20/18 08:37; Admin Dose 75 MG; Start 07/15/18 at 14:00 Nifedipine (Procardia Xl) 90 mg DAILY PO Last administered on 07/20/18 08:38; Admin Dose 90 MG; Start 07/15/18 at 13:30 Heparin Sodium (Porcine) (Heparin (1000 Units/ml)) 4,000 unit AFTER DIALYSIS CATHETER Last administered on 07/19/18 18:37; Admin Dose 4,000 UNIT; Start 07/15/18 at 15:00 Mannitol 50 ml @ 50 mls/5 min WITH DIALYSIS PRN IV DISEQUILIBRIUM SYNDROME PPX; Start 07/15/18 at 16:00 Albumin Human 100 ml @ 100 mls/hr WITH DIALYSIS PRN IV SBP <90 DURING DIALYSIS Last administered on 07/17/18 19:04; Admin Dose 100 MLS/HR; Start 07/15/18 at 15:00 Sodium Chloride (NS) -To prime the dialy... DIRECTED FOR HD PRN IV HD; Start 07/15/18 at 15:00 Clonidine HCl (Catapres-Tts 3 Patch) 1 patch Sa@1000 TRANSDERM Last administered on 07/15/18 17:07; Admin Dose 1 PATCH; Start 07/15/18 at 16:00 Allopurinol (Zyloprim) 100 mg BID PO Last administered on 07/20/18 08:38; Admin Dose 100 MG; Start 07/16/18 at 09:00 Enoxaparin Sodium (Lovenox) 30 mg DAILY SC Last administered on 07/20/18 08:42; Admin Dose 30 MG; Start 07/17/18 at 09:00 Docusate Sodium (Colace) 200 mg BID PRN PO CONSTIPATION; Start 07/16/18 at 13:00 Epoetin Tom (Epogen (Esrd)) 8,000 units MoWeFr@17 SC Last administered on 07/19/18at 18:31; Admin Dose 8,000 UNITS; Start 07/17/18 at 21:00 ANDREW MCPHERSON NP Jul 20, 2018 09:14
--- NOTE | 2018-07-20 11:58 | CONS ---
Assessment/Plan Assessment/Plan Assessment/Plan (Daily) 1. acute kidney failure with acute uremic encephalopathy - started on HD on 07/15/18 2. severe metabolic acidosis - Improving 3. severe anemia with Hb 5.9 s/p PRBC transfusion 4. no past medical history 9. accelerated HTN Plan: s/p R IJ [place] catheter placement on 07/15/18- 24 hr urine collection showed only 550 cc urine with creatinine clearance 1.6- HD ordered for tomorrow then will keep pt on MWF schedule. HIV, Hepatitis panel Non reactive Suprisingly Renal US showed Right kidney medical Renal disease( CKD) and left kidney not visualized Uric acid 14- allopurinol 100mg PO BID Epogen 8000 units SQ TID MWF Hydralazien 50mg pO TID, IV prn pt will need outpatient HD placement- requested at [facility] [place], [place] HD center will follow up Consultation Date/Type/Reason Admit Date/Time Jul 15, 2018 at 12:54 Initial Consult Date 07/15/18 Type of Consult NEPHROLOGY Requesting Provider: FATIMAH PARKS MD Date/Time of Note DATE: 07/20/18 TIME: 11:58 Exam/Review of Systems Exam Vitals Vital Signs Date Temp Pulse Resp B/P (MAP) Pulse Ox O2 O2 Flow FiO2 Time Delivery Rate 07/20/18 98.2 85 18 114/68 98 Room Air 11:19 (83) Intake and Output 07/19/18 07/19/18 07/20/18 1515:00 23:00 07:00 IntakeIntake Total 800 ml OutputOutput Total 400 ml 2500 ml BalanceBalance -400 ml -1700 ml Results Result Diagram: 07/20/18 0529 07/20/18 0529 Results 24hrs Laboratory Tests Test 07/20/18 05:29 White Blood Count 6.7 Red Blood Count 2.69 L Hemoglobin 7.4 L Hematocrit 23.2 L Mean Corpuscular Volume 86.2 Mean Corpuscular Hemoglobin 27.5 L Mean Corpuscular Hemoglobin Concent 31.9 L Red Cell Distribution Width 13.4 Platelet Count 220 Mean Platelet Volume 10.6 H Immature Granulocytes % 0.400 Neutrophils % 58.5 Lymphocytes % 25.5 Monocytes % 12.5 H Eosinophils % 2.8 Basophils % 0.3 Nucleated Red Blood Cells % 0.0 Immature Granulocytes # 0.030 Neutrophils # 3.9 Lymphocytes # 1.7 Monocytes # 0.8 Eosinophils # 0.2 Basophils # 0.0 Nucleated Red Blood Cells # 0.0 Sodium Level 139 Potassium Level 4.6 Chloride Level 103 Carbon Dioxide Level 24 Anion Gap 12 Blood Urea Nitrogen 37 #H Creatinine 13.09 #H Est Glomerular Filtrat Rate mL/min 6 L Glucose Level 99 Calcium Level 7.7 L Phosphorus Level 6.4 H Magnesium Level 2.0 Medications Medication Current Medications IV Flush (NS 3 ml) 3 ml PER PROTOCOL IV ; Start 07/15/18 at 13:30 Ondansetron HCl (Zofran Inj) 4 mg Q6H PRN IV NAUSEA/VOMITING; Start 07/15/18 at 13:30 Acetaminophen (Tylenol Tab) 650 mg Q6H PRN PO .PAIN 1-3 OR TEMP Last administered on 07/20/18at 09:05; Admin Dose 650 MG; Start 07/15/18 at 13:30 Acetaminophen/ Hydrocodone Bitart ([place] (5/325)) 1 tab Q6H PRN PO .MOD PAIN 4- 6 Last administered on 07/20/18at 05:54; Admin Dose 1 TAB; Start 07/15/18 at 13:30 Docusate Sodium (Colace) 100 mg Q12H PRN PO .CONSTIPATION Last administered on 07/17/18 06:29; Admin Dose 100 MG; Start 07/15/18 at 13:30 Bisacodyl (Dulcolax) 5 mg DAILY PRN PO .CONSTIPATION Last administered on 07/18/18at 10:36; Admin Dose 5 MG; Start 07/15/18 at 13:30 Bisacodyl (Dulcolax Supp) 10 mg DAILY PRN [place] .CONSTIPATION; Start 07/15/18 at 13:30 Pantoprazole (Protonix Tab) 40 mg DAILY@06 PO Last administered on 07/20/18 05:30; Admin Dose 40 MG; Start 07/16/18 at 06:00 Hydralazine HCl (Apresoline) 10 mg Q4H PRN PO SBP more than 150 mm Hg ; Start 07/15/18 at 13:30 Hydralazine HCl (Apresoline) 20 mg Q3H PRN IV ELEVATED SYSTOLIC BP; Start 07/15/18 at 13:30 Labetalol HCl (Normodyne) 100 mg TID PO Last administered on 07/20/18 08:38; Admin Dose 100 MG; Start 07/15/18 at 14:00 Hydralazine HCl (Apresoline) 75 mg TID PO Last administered on 07/20/18 08:37; Admin Dose 75 MG; Start 07/15/18 at 14:00 Nifedipine (Procardia Xl) 90 mg DAILY PO Last administered on 07/20/18 08:38; Admin Dose 90 MG; Start 07/15/18 at 13:30 Heparin Sodium (Porcine) (Heparin (1000 Units/ml)) 4,000 unit AFTER DIALYSIS CATHETER Last administered on 07/19/18 18:37; Admin Dose 4,000 UNIT; Start 07/15/18 at 15:00 Mannitol 50 ml @ 50 mls/5 min WITH DIALYSIS PRN IV DISEQUILIBRIUM SYNDROME PPX; Start 07/15/18 at 16:00 Albumin Human 100 ml @ 100 mls/hr WITH DIALYSIS PRN IV SBP <90 DURING DIALYSIS Last administered on 07/17/18 19:04; Admin Dose 100 MLS/HR; Start 07/15/18 at 15:00 Sodium Chloride (NS) -To prime the dialy... DIRECTED FOR HD PRN IV HD; Start 07/15/18 at 15:00 Clonidine HCl (Catapres-Tts 3 Patch) 1 patch Sa@1000 TRANSDERM Last administered on 07/15/18 17:07; Admin Dose 1 PATCH; Start 07/15/18 at 16:00 Allopurinol (Zyloprim) 100 mg BID PO Last administered on 07/20/18 08:38; Admin Dose 100 MG; Start 07/16/18 at 09:00 Enoxaparin Sodium (Lovenox) 30 mg DAILY SC Last administered on 07/20/18 08:42; Admin Dose 30 MG; Start 07/17/18 at 09:00 Docusate Sodium (Colace) 200 mg BID PRN PO CONSTIPATION; Start 07/16/18 at 13:00 Epoetin Tom (Epogen (Esrd)) 8,000 units MoWeFr@17 SC Last administered on 07/19/18 18:31; Admin Dose 8,000 UNITS; Start 07/17/18 at 21:00 ROSIE ULLOA MD Jul 20, 2018 11:58
[2018-07-21] VITALS (19 sets, daily range): BP systolic 110–159; BP diastolic 66–108; PULSE 76–103; RESP 16–20
[2018-07-21] MEDS: PANTOPRAZOLE (EC) 40 MG TAB PO SCH (05:59)
--- NOTE | 2018-07-21 07:19 | CONS ---
Assessment/Plan Assessment/Plan Assessment/Plan (Daily) 1. acute kidney failure with acute uremic encephalopathy - started on HD on 07/15/18 2. severe metabolic acidosis - Improving 3. severe anemia with Hb 5.9 s/p PRBC transfusion 4. no past medical history 9. accelerated HTN Plan: s/p R IJ [place] catheter placement on 07/15/18- Plan for HD today, will keep him on MWF schedule IR guided tunneled HD catheter placement ordered for today HIV, Hepatitis panel Non reactive Suprisingly Renal US showed Right kidney medical Renal disease( CKD) and left kidney not visualized Uric acid 14- allopurinol 100mg PO BID Epogen 8000 units SQ TID MWF Hydralazien 50mg pO TID, IV prn pt will need outpatient HD placement- requested at [facility] [place] HD center will follow up Consultation Date/Type/Reason Admit Date/Time Jul 15, 2018 at 12:54 Initial Consult Date 07/15/18 Type of Consult NEPHROLOGY Requesting Provider: FATIMAH PARKS MD Date/Time of Note DATE: 07/21/18 TIME: 07:19 24 HR Interval Summary Free Text/Dictation plan for HD today, afebrile,BP stable Exam/Review of Systems Exam Vitals Vital Signs Date Temp Pulse Resp B/P (MAP) Pulse Ox O2 O2 Flow FiO2 Time Delivery Rate 07/21/18 98.1 76 20 121/68 98 Room Air 02:00 (85) Intake and Output 07/20/18 07/20/18 07/21/18 1414:59 22:59 06:59 IntakeIntake Total 1380 ml BalanceBalance 1380 ml Exam Constitutional: alert Respiratory: crackles/rales, diminished breath sounds Cardiovascular: regular rate and rhythm, nl pulses Gastrointestinal: soft, non-tender Musculoskeletal: muscle weakness, swelling, other (muscle spasm) Extremities: normal pulses Neurological: TUB WASHER II-XII intact, nl mental status, nl speech, nl strength Skin: nl turgor Lymph: nl lymph nodes Results Result Diagram: 07/21/18 0542 07/21/18 0542 Results 24hrs Laboratory Tests Test 07/21/18 05:42 White Blood Count 7.3 Red Blood Count 2.79 L Hemoglobin 7.7 L Hematocrit 24.1 L Mean Corpuscular Volume 86.4 Mean Corpuscular Hemoglobin 27.6 L Mean Corpuscular Hemoglobin Concent 32.0 Red Cell Distribution Width 13.5 Platelet Count 240 Mean Platelet Volume 9.9 Immature Granulocytes % 0.400 Neutrophils % 59.9 Lymphocytes % 24.9 Monocytes % 11.6 H Eosinophils % 2.7 Basophils % 0.5 Nucleated Red Blood Cells % 0.0 Immature Granulocytes # 0.030 Neutrophils # 4.4 Lymphocytes # 1.8 Monocytes # 0.9 Eosinophils # 0.2 Basophils # 0.0 Nucleated Red Blood Cells # 0.0 Prothrombin Time 13.5 Prothrombin Time Ratio 1.1 INR International Normalized Ratio 1.02 Activated Partial Thromboplast Time 34.9 Sodium Level 143 Potassium Level 4.6 Chloride Level 103 Carbon Dioxide Level 23 Anion Gap 17 H Blood Urea Nitrogen 44 H Creatinine 16.04 #H Est Glomerular Filtrat Rate mL/min 4 L Glucose Level 92 Calcium Level 7.9 L Phosphorus Level 7.4 H Magnesium Level 2.1 Medications Medication Current Medications IV Flush (NS 3 ml) 3 ml PER PROTOCOL IV ; Start 07/15/18 at 13:30 Ondansetron HCl (Zofran Inj) 4 mg Q6H PRN IV NAUSEA/VOMITING; Start 07/15/18 at 13:30 Acetaminophen (Tylenol Tab) 650 mg Q6H PRN PO .PAIN 1-3 OR TEMP Last administered on 07/20/18 09:05; Admin Dose 650 MG; Start 07/15/18 at 13:30 Acetaminophen/ Hydrocodone Bitart ([place] (5/325)) 1 tab Q6H PRN PO .MOD PAIN 4- 6 Last administered on 07/20/18 05:54; Admin Dose 1 TAB; Start 07/15/18 at 13:30 Docusate Sodium (Colace) 100 mg Q12H PRN PO .CONSTIPATION Last administered on 07/17/18 06:29; Admin Dose 100 MG; Start 07/15/18 at 13:30 Bisacodyl (Dulcolax) 5 mg DAILY PRN PO .CONSTIPATION Last administered on 07/18/18 10:36; Admin Dose 5 MG; Start 07/15/18 at 13:30 Bisacodyl (Dulcolax Supp) 10 mg DAILY PRN [place] .CONSTIPATION; Start 07/15/18 at 13:30 Pantoprazole (Protonix Tab) 40 mg DAILY@06 PO Last administered on 07/20/18 05:30; Admin Dose 40 MG; Start 07/16/18 at 06:00 Hydralazine HCl (Apresoline) 10 mg Q4H PRN PO SBP more than 150 mm Hg ; Start 07/15/18 at 13:30 Hydralazine HCl (Apresoline) 20 mg Q3H PRN IV ELEVATED SYSTOLIC BP; Start 07/15/18 at 13:30 Labetalol HCl (Normodyne) 100 mg TID PO Last administered on 07/20/18 22:38; Admin Dose 100 MG; Start 07/15/18 at 14:00 Hydralazine HCl (Apresoline) 75 mg TID PO Last administered on 07/20/18 22:37; Admin Dose 75 MG; Start 07/15/18 at 14:00 Nifedipine (Procardia Xl) 90 mg DAILY PO Last administered on 07/20/18 08:38; Admin Dose 90 MG; Start 07/15/18 at 13:30 Heparin Sodium (Porcine) (Heparin (1000 Units/ml)) 4,000 unit AFTER DIALYSIS CATHETER Last administered on 07/19/18 18:37; Admin Dose 4,000 UNIT; Start 07/15/18 at 15:00 Mannitol 50 ml @ 50 mls/5 min WITH DIALYSIS PRN IV DISEQUILIBRIUM SYNDROME PPX; Start 07/15/18 at 16:00 Albumin Human 100 ml @ 100 mls/hr WITH DIALYSIS PRN IV SBP <90 DURING DIALYSIS Last administered on 07/17/18 19:04; Admin Dose 100 MLS/HR; Start 07/15/18 at 15:00 Sodium Chloride (NS) -To prime the dialy... DIRECTED FOR HD PRN IV HD; Start 07/15/18 at 15:00 Clonidine HCl (Catapres-Tts 3 Patch) 1 patch Sa@1000 TRANSDERM Last administered on 07/15/18 17:07; Admin Dose 1 PATCH; Start 07/15/18 at 16:00 Allopurinol (Zyloprim) 100 mg BID PO Last administered on 07/20/18 22:38; Admin Dose 100 MG; Start 07/16/18 at 09:00 Enoxaparin Sodium (Lovenox) 30 mg DAILY SC Last administered on 07/20/18 08:42; Admin Dose 30 MG; Start 07/17/18 at 09:00 Docusate Sodium (Colace) 200 mg BID PRN PO CONSTIPATION; Start 07/16/18 at 13:00 Epoetin Tom (Epogen (Esrd)) 8,000 units MoWeFr@17 SC Last administered on 07/19/18at 18:31; Admin Dose 8,000 UNITS; Start 07/17/18 at 21:00 ROSIE ULLOA MD Jul 21, 2018 07:19
[2018-07-21] MEDS: NIFEdipine (XL) 90 MG TAB PO SCH (09:00)
[2018-07-21] MEDS: LABETALOL 100 MG TAB PO SCH ×3 (09:00→22:32)
[2018-07-21] MEDS ORDERED: FENTAnyl 50 MCG/ML VIAL ONE (09:17)
[2018-07-21] MEDS ORDERED: LIDOCAINE 1% (MDV) 20 ML INJ ONE (09:17)
[2018-07-21] MEDS ORDERED: MIDAZOLAM 1 MG/ML 2 ML INJ ONE (09:17)
[2018-07-21] MEDS ORDERED: HEPARIN 1000 UNITS/ML 10 ML INJ ONE (09:17)
--- NOTE | 2018-07-21 10:13 | HPN ---
Date/Time of Note Date/Time of Note DATE: 07/21/18 TIME: 10:13 Interval H&P Admission Note Pt. seen H&P reviewed: No system changes ANNIA THRASHER MD Jul 21, 2018 10:13
--- NOTE | 2018-07-21 10:41 | RADRPT ---
PROCEDURE: PLACEMENT OF RIGHT INTERNAL JUGULAR VENOUS TUNNELED DIALYSIS CATHETER. CLINICAL INDICATION: Renal failure. TECHNIQUE: Prior to the procedure, informed consent was obtained. Risks including bleeding, infection, and pneum othorax were explained to the patient. The patient understood and was willing to proceed. A procedura l pause was performed. The patient's name, date of , and procedure to be performed were verified . The central line was inserted with all elements of maximal sterile barrier technique. All of the fo llowing were used: head covering, facial mask, sterile gown, sterile gloves, a large sterile sheet, h and hygiene, and 2% chlorhexidine for cutaneous antisepsis. The right neck and anterior/superior ch est wall was prepped and draped in usual sterile fashion. Following the local injection of Xylocaine, a 0.035 in Amplatz guidewire was advanced through the exi sting temporary dialysis catheter. A 1 cm incision with a #11 blade scalpel was made at the site of the existing temporary dialysis catheter and blunt dissection was performed. A tunnel was then creat ed from the anterior lateral aspect of the superior right chest wall to the puncture site in the neck and the catheter was pulled through the tract. The existing temporary dialysis catheter was removed over the guidewire. Serial dilatation was then performed and a 16 Yemeni peel away sheath was intro duced. The 14.5 Yemeni 23cm long tip to cuff Angiodynamics BioFlo DuraMax dialysis catheter was adva nced through the 16 Yemeni peel-away sheath. The tip of the catheter was confirmed in position within the right atrium. The peel-away sheath was removed. The 2 ports were each flushed with 2.3 ml of 1: 1000 heparin. The catheter was secured to the skin with 2-0 silk. The wound in the neck was closed with 4-0 Vicryl suture using subcuticular running technique. The site was dressed. Specimens: None. Blood loss: 5 ml. Complications: None. Rn New Grad: Owen Jo. Anesthesia: Local and moderate sedation. Graft/Implant: Tunneled dialysis catheter. COMPARISON: None. FINDINGS: Final radiographic images demonstrate the tip of the catheter in the upper right atrium. A total of 0.2 minutes of fluoroscopy time was used. 5 images of the chest were obtained with image intensifie r. IMPRESSION: 1. Percutaneous insertion of right internal jugular dialysis tunneled dialysis catheter under fluoros copic guidance. RPTAT: QQ .Sam Dougherty MD, Date Time Electronically viewed and signed by .Sam Dougherty MD, on 07/21/2018 10:41 .R/
[2018-07-21] MEDS: ALLOPURINOL 100 MG TAB PO SCH ×2 (11:55→22:31)
[2018-07-21] MEDS: ENOXAPARIN 30 MG/0.3 ML SYG SC SCH (11:55)
--- NOTE | 2018-07-21 13:02 | PN ---
Date/Time of Note Date/Time of Note DATE: 07/21/18 TIME: 13:01 Assessment/Plan VTE Prophylaxis Risk score (from Nsg)>0 risk: 3 SCD applied (from Nsg): Yes Pharmacological prophylaxis: LMWH Lines/Catheters IV Catheter Type (from Nrsg): Burt cath Urinary Cath still in place: Yes Reason Cath still needed: other (indicate) Assessment/Plan Hospital Course SUBJECTIVE: Denies any nausea. Denies any chest pain. OBJECTIVE: Physical Exam General: Morbidly obese, 28 year-old male lying in bed in no apparent distress. HEENT: Normocephalic, atraumatic. Eyes: Anicteric sclerae, conjunctivae clear. ENT: Nasal septum midline, oral mucosa moist. Neck supple, no JVD noticed. Respiratory: Bilaterally clear breath sounds. No use of accessory muscles of respiration. No adventitious breath sounds. Cardiovascular: S1, S2 heard. Regular rate and rhythm. Abdomen: Soft, nontender, and nondistended. Bowel sounds positive in all 4 quadrants. Genitourinary: Deferred. Extremities: No cyanosis, no clubbing, no edema. Peripheral pulses palpable. Neurologic: Cranial nerves II through XII grossly intact. The patient is awake, alert, and oriented. Skin: Normal skin turgor. No skin rashes. Labs & Vitals per chart ASSESSMENT & PLAN 28-year-old male with underlying obesity and previously healthy who came to the emergency room with multiple complaints including generalized weakness, palpitations, lethargy, paresthesias, muscle spasms, and intermittent vomiting. The patient was noticed to be in acute renal failure with a BUN and creatinine of 162 and 44 respectively. The patient also had underlying metabolic acidosis. The patient had minimally elevated troponins. The patient was admitted to inpatient setting for further treatment and evaluation. 1. Acute renal failure. -Newly started on hemodialysis on 07/15/2018. -Etiology unclear. Renal ultrasound showing evidence of CKD on the right side and nonvisualization of the left kidney. -Being followed by nephrology. 2. Hypertensive urgency. -Continue antihypertensives -Blood pressure currently well controlled. 3. Hyperuricemia. -Continue allopurinol. 4. Microcytic, hypochromic anemia. -Status post 2 units of PRBC transfusion. -Etiology unclear. -On Neupogen. -Pending haptoglobin. 5. Prediabetes. -Hemoglobin A1c 6.0. -Monitor serum glucose levels. 6. Dyslipidemia. -Low-cholesterol diet. 7. Morbid obesity. -BMI more than 35 kg/m. -Weight reduction advised. 8. Fluids, electrolytes, and nutrition. -Renal diet. 9. DVT prophylaxis. -Subcutaneous Lovenox (renal dose). 10. Plan. -Continue hemodialysis as per nephrology. -Obtain arrangements for outpatient hemodialysis. The patient was seen in collaboration with Dr. Pitts. Result Diagram: 07/21/1842 07/21/1842 Results 24hrs Laboratory Tests Test 07/21/18 05:42 White Blood Count 7.3 Red Blood Count 2.79 L Hemoglobin 7.7 L Hematocrit 24.1 L Mean Corpuscular Volume 86.4 Mean Corpuscular Hemoglobin 27.6 L Mean Corpuscular Hemoglobin Concent 32.0 Red Cell Distribution Width 13.5 Platelet Count 240 Mean Platelet Volume 9.9 Immature Granulocytes % 0.400 Neutrophils % 59.9 Lymphocytes % 24.9 Monocytes % 11.6 H Eosinophils % 2.7 Basophils % 0.5 Nucleated Red Blood Cells % 0.0 Immature Granulocytes # 0.030 Neutrophils # 4.4 Lymphocytes # 1.8 Monocytes # 0.9 Eosinophils # 0.2 Basophils # 0.0 Nucleated Red Blood Cells # 0.0 Prothrombin Time 13.5 Prothrombin Time Ratio 1.1 INR International Normalized Ratio 1.02 Activated Partial Thromboplast Time 34.9 Sodium Level 143 Potassium Level 4.6 Chloride Level 103 Carbon Dioxide Level 23 Anion Gap 17 H Blood Urea Nitrogen 44 H Creatinine 16.04 #H Est Glomerular Filtrat Rate mL/min 4 L Glucose Level 92 Calcium Level 7.9 L Phosphorus Level 7.4 H Magnesium Level 2.1 Exam/Review of Systems Exam Vitals Vital Signs Date Temp Pulse Resp B/P (MAP) Pulse Ox O2 O2 Flow FiO2 Time Delivery Rate 07/21/18 98.0 103 18 156/80 100 Room Air 10:54 (105) Intake and Output 07/20/18 07/20/18 07/21/18 1515:00 23:00 07:00 IntakeIntake Total 1380 ml BalanceBalance 1380 ml Results Results 24hrs Laboratory Tests Test 07/21/18 05:42 White Blood Count 7.3 Red Blood Count 2.79 L Hemoglobin 7.7 L Hematocrit 24.1 L Mean Corpuscular Volume 86.4 Mean Corpuscular Hemoglobin 27.6 L Mean Corpuscular Hemoglobin Concent 32.0 Red Cell Distribution Width 13.5 Platelet Count 240 Mean Platelet Volume 9.9 Immature Granulocytes % 0.400 Neutrophils % 59.9 Lymphocytes % 24.9 Monocytes % 11.6 H Eosinophils % 2.7 Basophils % 0.5 Nucleated Red Blood Cells % 0.0 Immature Granulocytes # 0.030 Neutrophils # 4.4 Lymphocytes # 1.8 Monocytes # 0.9 Eosinophils # 0.2 Basophils # 0.0 Nucleated Red Blood Cells # 0.0 Prothrombin Time 13.5 Prothrombin Time Ratio 1.1 INR International Normalized Ratio 1.02 Activated Partial Thromboplast Time 34.9 Sodium Level 143 Potassium Level 4.6 Chloride Level 103 Carbon Dioxide Level 23 Anion Gap 17 H Blood Urea Nitrogen 44 H Creatinine 16.04 #H Est Glomerular Filtrat Rate mL/min 4 L Glucose Level 92 Calcium Level 7.9 L Phosphorus Level 7.4 H Magnesium Level 2.1 Medications Medication Current Medications IV Flush (NS 3 ml) 3 ml PER PROTOCOL IV ; Start 07/15/18 at 13:30 Ondansetron HCl (Zofran Inj) 4 mg Q6H PRN IV NAUSEA/VOMITING; Start 07/15/18 at 13:30 Acetaminophen (Tylenol Tab) 650 mg Q6H PRN PO .PAIN 1-3 OR TEMP Last administered on 07/20/18 09:05; Admin Dose 650 MG; Start 07/15/18 at 13:30 Acetaminophen/ Hydrocodone Bitart ([place] (5/325)) 1 tab Q6H PRN PO .MOD PAIN 4- 6 Last administered on 07/20/18 05:54; Admin Dose 1 TAB; Start 07/15/18 at 13:30 Docusate Sodium (Colace) 100 mg Q12H PRN PO .CONSTIPATION Last administered on 07/17/18 06:29; Admin Dose 100 MG; Start 07/15/18 at 13:30 Bisacodyl (Dulcolax) 5 mg DAILY PRN PO .CONSTIPATION Last administered on 07/18/18 10:36; Admin Dose 5 MG; Start 07/15/18 at 13:30 Bisacodyl (Dulcolax Supp) 10 mg DAILY PRN MA .CONSTIPATION; Start 07/15/18 at 13:30 Pantoprazole (Protonix Tab) 40 mg DAILY@06 PO Last administered on 07/20/18 05:30; Admin Dose 40 MG; Start 07/16/18 at 06:00 Hydralazine HCl (Apresoline) 10 mg Q4H PRN PO SBP more than 150 mm Hg ; Start 07/15/18 at 13:30 Hydralazine HCl (Apresoline) 20 mg Q3H PRN IV ELEVATED SYSTOLIC BP; Start 07/15/18 at 13:30 Labetalol HCl (Normodyne) 100 mg TID PO Last administered on 07/20/18 22:38; Admin Dose 100 MG; Start 07/15/18 at 14:00 Hydralazine HCl (Apresoline) 75 mg TID PO Last administered on 07/20/18 22:37; Admin Dose 75 MG; Start 07/15/18 at 14:00 Nifedipine (Procardia Xl) 90 mg DAILY PO Last administered on 07/20/18 08:38; Admin Dose 90 MG; Start 07/15/18 at 13:30 Heparin Sodium (Porcine) (Heparin (1000 Units/ml)) 4,000 unit AFTER DIALYSIS C ATHETER Last administered on 07/19/18 18:37; Admin Dose 4,000 UNIT; Start 07/15/18 at 15:00 Mannitol 50 ml @ 50 mls/5 min WITH DIALYSIS PRN IV DISEQUILIBRIUM SYNDROME PPX; Start 07/15/18 at 16:00 Albumin Human 100 ml @ 100 mls/hr WITH DIALYSIS PRN IV SBP <90 DURING DIALYSIS Last administered on 07/17/18 19:04; Admin Dose 100 MLS/HR; Start 07/15/18 at 15:00 Sodium Chloride (NS) -To prime the dialy... DIRECTED FOR HD PRN IV HD; Start 07/15/18 at 15:00 Clonidine HCl (Catapres-Tts 3 Patch) 1 patch Sa@1000 TRANSDERM Last administered on 07/15/18 17:07; Admin Dose 1 PATCH; Start 07/15/18 at 16:00 Allopurinol (Zyloprim) 100 mg BID PO Last administered on 07/21/18 11:55; Admin Dose 100 MG; Start 07/16/18 at 09:00 Enoxaparin Sodium (Lovenox) 30 mg DAILY SC Last administered on 3/8/19at 11:55; Admin Dose 30 MG; Start 07/17/18 at 09:00 Docusate Sodium (Colace) 200 mg BID PRN PO CONSTIPATION; Start 07/16/18 at 13:00 Epoetin Tom (Epogen (Esrd)) 8,000 units MoWeFr@17 SC Last administered on 07/19at 18:31; Admin Dose 8,000 UNITS; Start 07/17/18 at 21:00 ANDREW MCPHERSON NP Jul 21, 2018 13:02
[2018-07-21] MEDS: EPOETIN 4000 UNITS/1 ML INJ (ESRD) SC SCH (17:45)
[2018-07-21] MEDS: HEPARIN 1000 UNITS/ML 10 ML INJ CATHETER SCH (22:19)
[2018-07-21] MEDS: HYDROCODONE/APAP (5/325) TAB PO PRN (23:21)
[2018-07-22 02:00] VITALS: BP 113/54; PULSE 101; RESP 18
[2018-07-22 02:24] VITALS: BP 113/54; PULSE 101; RESP 18
[2018-07-22] MEDS: HYDROCODONE/APAP (5/325) TAB PO PRN (05:47)
[2018-07-22] MEDS: PANTOPRAZOLE (EC) 40 MG TAB PO SCH (05:47)
--- NOTE | 2018-07-22 07:40 | PN ---
Assessment/Plan VTE Prophylaxis Risk score (from Nsg)>0 risk: 3 Lines/Catheters IV Catheter Type (from Nrsg): Burt cath. Assessment/Plan Result Diagram: 07/21/18 0542 07/21/1842 Exam/Review of Systems Exam Vitals Medications Medication ANDREW MCPHERSON NP Jul 22, 2018 07:40
[2018-07-22 07:43] VITALS: BP 124/60; PULSE 67; RESP 18
[2018-07-22] MEDS: ALLOPURINOL 100 MG TAB PO SCH (10:26)
[2018-07-22] MEDS: ENOXAPARIN 30 MG/0.3 ML SYG SC SCH (10:26)
[2018-07-22] MEDS: NIFEdipine (XL) 90 MG TAB PO SCH (10:26)
[2018-07-22] MEDS: LABETALOL 100 MG TAB PO SCH ×2 (10:27→13:00)
[2018-07-22] MEDS ORDERED: LABE100T7 PO (11:52)
[2018-07-22] MEDS ORDERED: HYDR-3671 PO (11:52)
[2018-07-22] MEDS ORDERED: NIFE90TA PO (11:52)
[2018-07-22] MEDS ORDERED: ALLO100T PO (11:52)
[2018-07-22] MEDS ORDERED: ATOR20TA38 PO (12:05)
--- NOTE | 2018-07-22 12:10 | PDOCDIS ---
Discharge Instructions CONDITION [id number] Patient Condition: [id number] Stable HOME CARE INSTRUCTIONS: [id number] Diet Instructions: [id number] Low Fat /Cholesterol [id number] Special Diet: [id number] Low potassium FOLLOW UP/APPOINTMENTS Follow-up Plan Bill Mcgovern MD Specialty: Nephrology Office Address [address] [address] Office OTHER ORDERS: Other Orders: 1. Take medications as per prescription. 2. Take a low-cholesterol, low potassium diet. 3. Resume activities as tolerated. 4. Follow-up with your dialysis clinic as scheduled 5. Please follow-up with Dr. Mcgovern. Please call for appointment. 6. Please go to the nearest emergency room if you have any significant shortness of breath, chest pain, or any other unusual signs/symptoms. ANDREW MCPHERSON NP Jul 22, 2018 12:10
[2018-07-22 13:00] VITALS: BP 105/59; PULSE 111; RESP 16
--- NOTE | 2018-07-22 17:10 | DS ---
Date/Time of Note Date/Time of Note DATE: 07/22/18 TIME: 17:07 Discharge Summary Admission/Discharge Info Admit Date/Time Jul 15, 2018 at 12:54 Discharge Date/Time Jul 22, 2018 at 13:30 Discharge Diagnosis 1. Acute renal failure. Newly started on hemodialysis on 07/15/2018. 2. Hypertensive urgency. 3. Hyperuricemia. 4. Microcytic, hypochromic anemia. 5. Prediabetes. Hemoglobin A1c 6.0. 6. Dyslipidemia. 7. Morbid obesity. Patient Condition: Stable Consults 1. Bill Mcgovern MD, Nephrology. 2. Alejo Gonzalez MD, Urology. Procedures Placement of right internal jugular vein non-tunneled Temporary Hemodialysis Catheter IMPRESSION: 1. Satisfactory insertion of right internal jugular vein temporary dialysis catheter with ultrasound and fluoroscopic guidance. 2D Echocardiogram Conclusions: Lower limits of normal systolic function. Normal left ventricular cavity size. Moderate concentric left ventricular hypertrophy. Ejection fraction is visually estimated at 50 %. Tissue Doppler/Mitral Doppler indices are consistent with impaired relaxation (Stage I diastolic dysfunction). No significant aortic stenosis or insufficiency. Aortic cusps appear mildly calcified. Normal appearance of the tricuspid valve. Estimated peak PA systolic pressure 34 mmHg. There is mild tricuspid regurgitation. Mild mitral leaflet calcification. Mild mitral annular calcification. Trace mitral regurgitation. Hx of Present Illness This is a 28-year-old male with underlying obesity and previously healthy who came to the emergency room with multiple complaints including generalized weakness, palpitations, lethargy, paresthesias, muscle spasms, and intermittent vomiting. The patient was noticed to be in acute renal failure with a BUN and creatinine of 162 and 44 respectively. The patient also had underlying metabolic acidosis. The patient had minimally elevated troponins. The patient was admitted to inpatient setting for further treatment and evaluation. Hospital Course Etiology of the patient's worsening renal function remains unclear. The patient's renal ultrasound was showing evidence of CKD on the right side and nonvisualization of the left kidney. The patient's acute renal failure could have been secondary to worsening of the patient's underlying CKD from long- standing uncontrolled hypertension pressure. The patient had hypertensive urgency that required short-term ICU monitoring. The patient's blood pressure was gradually lowered to obtain optimal blood pressure control. The patient was also noticed to have hyperuricemia. The patient was maintained on allopurinol. The patient also had underlying microcytic, hypochromic anemia. The patient required 2 units of PRBC transfusion. Patient did not have any evidence of significant iron deficiency. Patient's LDH was elevated. The patient's haptoglobin was elevated too. The etiology of the patient's anemia could have been secondary to his underlying renal disease. The patient was maintained on Epogen. The patient also had minimally elevated troponin that resolved. The patient's elevated troponin could be most probably secondary to his underlying hypertensive urgency causing demand ischemia. The patient was also noticed to have dyslipidemia. The patient has a high 10-year cardiovascular risk because of his underlying hypertension and dyslipidemia. Therefore, the patient was started on statin therapy. The patient was also morbidly obese with a BMI of 35 kg/m. The patient was advised on weight reduction. The patient had a prolonged hospital course because of thedelay in arranging outpatient hemodialysis since the patient had no health insurance. The patient got health insurance and the patient has outpatient dialysis arrangement. Therefore, the patient will be discharged home. The patient also had some urinary retention with difficulty in the putting a Shine catheter. Therefore, a urology consult was obtained for Shine catheter insertion. The patient's Shine catheter was discontinued later during the patient's hospital course. Discharge Instructions 1. Take medications as per prescription. 2. Take a low-cholesterol, low potassium diet. 3. Resume activities as tolerated. 4. Follow-up with your dialysis clinic as scheduled 5. Please follow-up with Dr. Mcgovern. Please call for appointment. 6. Please go to the nearest emergency room if you have any significant shortness of breath, chest pain, or any other unusual signs/symptoms. The patient verbalized understanding of his discharge instructions. At this time would like to thank all the consultants for seeing the patient and providing clinical recommendations. The patient was seen in collaboration with Dr. Pitts. Home Meds Active Scripts Atorvastatin Calcium* (Atorvastatin Calcium*) 20 Mg Tablet, 20 MG PO QHS, #30 TAB Prov:ANDREW MCPHERSON NP 07/22/18 Allopurinol* (Allopurinol*) 100 Mg Tablet, 100 MG PO BID, #60 TAB Prov:ANDREW MCPHERSON NP 07/22/18 Nifedipine (Procardia Xl) 90 Mg Tab.er.24, 90 MG PO DAILY, #30 TAB Prov:ANDREW MCPHERSON NP 3/9/19 Labetalol Hcl* (Labetalol Hcl*) 100 Mg Tablet, 100 MG PO TID, #90 TAB Prov:ANDREW MCPHERSON NP 07/22/18 Hydralazine Hcl* (Hydralazine Hcl*) 25 Mg Tab, 75 MG PO TID, #90 TAB Prov:ANDREW MCPHERSON NP 07/22/18 Follow-up Plan Bill Mcgovern MD Specialty: Nephrology Office Address [address] [place] [id number] Office Primary Care Provider Not On Staff Doctor Time spent on discharge: > 30 minutes ANDREW MCPHERSON NP Jul 22, 2018 17:10
== END 2018-07-22 13:30 | disposition home or self-care (01) | DRG 674 ==
LOC: E/R 10:13 → ICU 12:54 → 6WM 07-16 18:05 → 2NE 07-20 18:40
PROVIDERS: ADMIT Internal Medicine; ATTEND Internal Medicine
PROC: 02H633Z Insertion of Infusion Device into Right Atrium, Percutaneous Approach (ICD-10-PCS; principal; 2018-07-15)
PROC: 5A1D70Z Performance of Urinary Filtration, Intermittent, Less than 6 Hours Per Day (ICD-10-PCS; 2018-07-15)
PROC: 0JH63XZ Insertion of Tunneled Vascular Access Device into Chest Subcutaneous Tissue and Fascia, Percutaneous Approach (ICD-10-PCS; 2018-07-21)
PROC: 02PA33Z Removal of Infusion Device from Heart, Percutaneous Approach (ICD-10-PCS; 2018-07-21)
PROC: 02H633Z Insertion of Infusion Device into Right Atrium, Percutaneous Approach (ICD-10-PCS; 2018-07-21)
DX: N17.9 Acute kidney failure, unspecified (principal); E87.2 Acidosis; I24.8 Other forms of acute ischemic heart disease; G93.49 Other encephalopathy; Z68.35 Body mass index [BMI] 35.0-35.9, adult; I16.0 Hypertensive urgency; I12.9 Hypertensive chronic kidney disease with stage 1 through stage 4 chronic kidney disease, or unspecified chronic kidney disease; N18.9 Chronic kidney disease, unspecified; E79.0 Hyperuricemia without signs of inflammatory arthritis and tophaceous disease; R73.03 Prediabetes; E78.5 Hyperlipidemia, unspecified; D63.1 Anemia in chronic kidney disease; R33.9 Retention of urine, unspecified; Z71.3 Dietary counseling and surveillance; E66.01 Morbid (severe) obesity due to excess calories; E83.51 Hypocalcemia
CPT/HCPCS: 36415; 36430; 36556; 36600; 71045; 74176; 76775; 76942; 80048; 80053; 80061; 80307; 81001; 82550; 82565; 82570; 82575; 82728; 82803; 82962; 83010; 83036; 83540; 83615; 83690; 83735; 84100; 84155; 84156; 84165; 84166; 84300; 84439; 84443; 84481; 84484; 84560; 85014; 85018; 85025; 85610; 85730; 86703; 86704; 86709; 86803; 86850; 86900; 86901; 86920; 87081; 87086; 87340; 89190; 90935; 93005; 93306; 96374; 96375; C1752; J0610; J1644; J1650; J2250; J2997; J3010; J3475; J7030; J7070; P9016; P9047; Q4081